=== PATIENT | male | born 1970 | race African-American/Black ===

== ENCOUNTER 2019-12-15 09:12 | Inpatient (IN) | payer BC, SELFPAY ==
--- NOTE | 2019-12-15 09:47 | RAD ---
EXAM: Single view of the chest HISTORY: Dyspnea and heart murmur COMPARISON: None FINDINGS: Single view of the chest shows a normal sized cardiomediastinal silhouette. There is fluffy opacity in the right hilar region which could represent pulmonary edema or an infiltrate. The bones are unremarkable. IMPRESSION: Right perihilar infiltrate versus edema
[2019-12-15 10:00] LABS: #Eosinphils 0.4 thou/uL (0.0-0.7); #Lymphocytes 1.7 thou/uL (1.20-3.40); #Monocytes 0.5 thou/uL (0.11-0.59); #Neutrophils 6.7 thou/uL (1.40-6.50); %Basophils 0.5 % (0.0-1.0); %Eosinophils 3.9 % (0.0-10.0); %Lymphocytes 18.4 % (21.0-51.0); %Monocytes 5.4 % (0.0-10.0); %Neutrophils 71.9 % (42.0-75.0); Mean Corpuscular HGB CONC 32.7 g/dL (32.0-36.0); Mean Corpuscular Hemoglobin 29.8 pg (27.0-31.0); Mean Corpuscular Volume 91.1 fL (78.0-98.0); Platelet Count 178 thou/uL (130-400); RBC Distribution Width 11.3 % (11.5-14.5); Red Blood Cell (RBC) Count 5.03 mill/uL (4.70-6.10); White Blood Cell (WBC) Count 9.4 thou/uL (4.8-10.8)
[2019-12-15 10:20] LABS: ALT (SGPT) 20 U/L (8-55); AST (SGOT) 33 U/L (5-34); Albumin 3.8 g/dL (3.5-5.0); Alkaline Phosphatase 66 U/L (40-110); Anion Gap 15 mmol/L (10-20); BUN (Urea Nitrogen) 16 mg/dL (8.9-20.6); Bilirubin, Total 1.2 mg/dL (0.2-1.2); CK (CPK) 361 U/L (30-200); Calc. Creatinine Clearance 0 mL/min (70-130); Carbon Dioxide 24 mmol/L (22-29); Chloride 104 mmol/L (98-107); Estimated GFR-MDRD 65; Glucose 143 mg/dL (70-105); Lipase 18 U/L (8-78); Potassium 4.1 mmol/L (3.5-5.1); Protein, Total 6.8 g/dL (6.0-8.3); Sodium 139 mmol/L (136-145)
[2019-12-15 10:45] LABS: CKMB 6.9 ng/mL (0-6.6)
[2019-12-15] MEDS ORDERED: Nitroglycerin 2% Ointment 1 INCH/1 GM Packet ONE (11:23)
[2019-12-15] MEDS ORDERED: Metoprolol Tartrate 5 MG/5 ML VIAL ONE (11:23)
[2019-12-15] MEDS ORDERED: Furosemide 40 MG/4 ML VIAL ONE (11:23)
[2019-12-15] MEDS ORDERED: Aspirin Chewable 81 MG TAB ONE (11:52)
--- NOTE | 2019-12-15 12:04 | CT ---
EXAM: CTA of the chest and abdomen HISTORY: Chest pain and back pain. Heart murmur and cough COMPARISON: None TECHNIQUE: Multiple contiguous axial images were obtained a CTA of the chest and abdomen with contras t per aortic dissection protocol. Sagittal and coronal 3-D MIP reformats were performed. FINDINGS: HEART: Normal in size with hypertrophy of the left ventricular wall. PULMONARY ARTERIES: Normal in caliber without filling defects to suggest pulmonary emboli. MEDIASTINUM: No hilar or mediastinal lymphadenopathy. LUNGS: Multifocal opacities are seen scattered throughout the lungs. This is worse in the right lung and is more prominent in the hilar region. PLEURAL SPACE: Small right pleural effusion. CHEST AND ABDOMINAL WALL SOFT TISSUES: Unremarkable LIVER: Calcified granuloma. GALLBLADDER: Unremarkable. KIDNEYS: Unremarkable. SPLEEN: Unremarkable. PANCREAS: Unremarkable. BOWEL: Unremarkable. RETROPERITONEUM: No lymphadenopathy BONES: Degenerative changes in the spine. ASCENDING THORACIC AORTA: Normal caliber without evidence of dissection or aneurysmal dilatation. DESCENDING THORACIC AORTA: Normal caliber without evidence of dissection or aneurysmal dilatation. ABDOMINAL AORTA: Normal caliber without evidence of dissection or aneurysmal dilatation. CELIAC TRUNK: Patent SMA: Patent IVETTE: Patent RENAL ARTERIES: Bilateral single renal arteries without significant atherosclerotic disease IMPRESSION: 1. No evidence of thoracic or abdominal aortic aneurysm or dissection 2. Multifocal opacities in the lungs. This may represent an infectious process. Pulmonary edema is al so a possibility although less likely given the normal size of the heart. 3. Small right pleural effusion
[2019-12-15 12:20] LABS: Bilirubin Negative (Negative); Blood, Urine Negative (Negative); Clarity Clear (Clear); Glucose, Urine (Dipstick) Normal (Negative); Leukocyte Negative Leu/uL (Negative); Nitrite Negative (Negative); Protein, Urine (Dipstick) Negative (Neg-Trace); Urobilinogen Normal mg/dL (Less than 2)
[2019-12-15] MEDS ORDERED: Acetaminophen 500 MG TAB ONE (12:21)
[2019-12-15] MEDS ORDERED: cefTRIAXone\\ROCEPHIN 2 GM VIAL ONE (13:09)
[2019-12-15] MEDS ORDERED: Carvedilol 6.25 MG TAB PO SCH (13:30)
[2019-12-15] MEDS ORDERED: Iopamidol-370 76% 500 ML 1 ML ONE (13:51)
[2019-12-15 14:21] LABS: Lactic Acid 1.7 mmol/L (0.5-2.2)
[2019-12-15 14:30] LABS: Troponin I 1.714 ng/mL (< 0.028)
[2019-12-15] MEDS ORDERED: Enoxaparin Sodium 80 MG/0.8 ML SYRINGE ONE (14:58)
--- NOTE | 2019-12-15 15:32 | CON ---
DATE OF CONSULTATION: 12/15/2019 REASON FOR CONSULTATION: Shortness of breath, murmur, and aortic insufficiency. 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 He recently was visiting [place] and recently came back. He is having some feeling of malaise, but no fever or chills. We were in the nursing station today. He reported to me that he had been having some palpitations and this did not feel well, had some awareness of his heart beating and he could hear his heartbeat. He did not have any chest pain. I listened to his heart and it had a loud murmur, has referred to the emergency room for further evaluation, especially in view of the loud murmur and feeling of malaise. PAST MEDICAL HISTORY: 1. The patient has a history of hypertension. He was taking an angiotensin receptor maude. 2. No diabetes. 3. No smoking. 4. No tobacco. 5. No caffeine. REVIEW OF SYSTEMS: CONSTITUTIONAL: Some malaise. VISION: No changes. HEARING: No changes. PULMONARY: Positive for some mild shortness of breath. CARDIAC: No chest pain or pressure. Some palpitations as mentioned. GASTROINTESTINAL: No nausea, vomiting, or diarrhea. SKIN: No rashes. NEUROLOGIC: No unilateral weakness or numbness. PSYCHIATRIC: No unusual depression or anxiety. PHYSICAL EXAMINATION: VITAL SIGNS: Examination is noted that the pulse was 104, even sitting in the nursing station. Blood pressure when he got down to the emergency room was 200 systolic down to 180/80. HEENT: Eyes, sclerae nonicteric. Mouth, mucous membranes moist. NECK: Supple. No lymphadenopathy. LUNGS: Some basilar rales. CARDIAC: There is a 4 to 5/6 systolic murmur, very high-pitched really heard throughout the precordium, but it is loudest at the left upper sternal border and right upper sternal border. It went to the base of the clavicles, it is really heard throughout the precordium. Heart rate is fast. I do hear a soft diastolic murmur. ABDOMEN: Soft and nontender. EXTREMITIES: No clubbing, cyanosis, or edema. SKIN: Warm and dry. PSYCHIATRIC: Mood and affect, normal. NEUROLOGIC: Grossly normal. DIAGNOSTIC DATA: EKG sinus rhythm with left ventricular hypertrophy with polarization changes. PERTINENT LABORATORY DATA: Creatinine is 1.4 and glucose 143. The patient's troponin 0.966. IMAGING STUDIES: Echocardiogram shows ejection fraction is 60% to 65%. There is moderate concentric left ventricular hypertrophy. There is severe aortic insufficiency. The aortic valve leaflets look thickened. No aortic stenosis. There is a possible membranous ventricular septal defect. Mild tricuspid insufficiency. CT scan for dissection protocol revealed normal aorta, no dissection, possible infiltrates. ASSESSMENT: 1. Severe aortic insufficiency. 2. Possible ventricular septal defect. 3. Possible endocarditis. 4. No evidence of any aortic dissection. 5. History of hypertension with moderate left ventricular hypertrophy. 6. Mild renal insufficiency. The patient does have a high muscle mass. Therefore, his creatinine may partly reflect the increased muscle mass. PLAN: 1. Infectious Disease has been consulted. 2. Diuretic has been given. It looks like he was in congestive heart failure. 3. Nitrates. 4. Carvedilol. 5. Continue angiotensin receptor blockers. We will check on him later today probably to get some further diuretics later in the day. Job ID: [id number]
--- NOTE | 2019-12-15 15:36 | CON ---
DATE OF CONSULTATION: 12/15/2019 REASON FOR CONSULTATION: Acute aortic insufficiency. 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 He listened to his heart and noticed that there was a loud murmur. He continued to have problems with breathing and was seen by Dr. Smith who admitted him. An echocardiogram showed wide open aortic insufficiency. CT dissection protocol did not reveal any evidence of aortic dissection. We have cultures pending. He has moderate headaches intermittently. No visual symptoms, sore throat, odynophagia, or dysphagia. He has not had any dental evaluation or treatment in the past many years. A little bit of cough, but no sputum production. No documented fever or chills. No night sweats. No abdominal pain or diarrhea. No genitourinary symptoms. No joint symptoms. No skin disorder. No neurological symptoms. MEDICAL HISTORY: Hypertension. ALLERGIES: NONE. MEDICATIONS: Losartan. Currently, he is on Rocephin, vancomycin, and p.r.n. medications. I think he is on diuretics and Coreg. FAMILY HISTORY: Sister has stage IV breast cancer. 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 No smoking. No drug use. Goes back and forth to visit family in [facility] from time to time. PHYSICAL EXAMINATION: GENERAL: He is awake, alert, and oriented. He does not appear in distress. VITAL SIGNS: His BP is 150/60, pulse is 102, O2 saturation 94%, and respiratory rate 22. SKIN: Normal. He has peripheral IV access and is voiding spontaneously. No lymphadenopathy. No skin lesions. No petechia or other types of hemorrhages. HEENT: Ocular movements conjugate. Conjunctivae normal. Ears and nose exam normal. Oral cavity normal. Teeth in fairly decent shape. NECK: Supple. No jugular vein distention or carotid bruits. No thyromegaly. LUNGS: Bibasilar inspiratory crackles. HEART: The patient has a quite harsh systolic murmur, short ejection type 2, heard pretty much throughout the precordium. The S2 is quite silent. I could not definitely hear a murmur in the diastole. ABDOMEN: Soft, not distended or tender. No ascites. No bladder distention. EXTREMITIES: No joint inflammatory activity. NEUROLOGIC: Nonfocal including cognitive function. LABORATORY DATA: White cell count 9.4, hemoglobin 15, platelets 178, 71% neutrophils, and 18% lymphocytes. Sodium 139 and creatinine 1.4. Liver profile normal. CK 361. Troponin 0.9. Albumin 3.8. TSH 1.15. Urinalysis was normal. Four sets of blood cultures have been submitted. The chest x-ray with bilateral pulmonary infiltrates as well as the CT dissection protocol scan. ASSESSMENT: Hypertension with new onset of acute aortic insufficiency with pulmonary edema. DISCUSSION: The differential diagnosis includes endocarditis versus myxomatous degeneration. Aortic dissection has been ruled out. The patient will have a FROY tomorrow and we will continue broad spectrum coverage empirically, prescribed. If the blood cultures are negative and there was evidence of endocarditis, we will submit the Karius test with a presumptive diagnosis of culture negative endocarditis. If the FROY does not show any vegetations, we will follow up the blood cultures and go from there. He probably will need a valve replacement. Job ID: [id number]
[2019-12-15] MEDS ORDERED: Ondansetron PF 4 MG/2 ML Vial IVP PRN (17:12)
[2019-12-15] MEDS ORDERED: Ibuprofen 200 MG TAB PO PRN (17:12)
[2019-12-15] MEDS ORDERED: Labetalol HCl 100 MG/20 ML VIAL SLOW IVP PRN (17:12)
[2019-12-15] MEDS ORDERED: hydrALAZINE 20 MG/ML VIAL SLOW IVP PRN (17:12)
[2019-12-15] MEDS ORDERED: Ondansetron ODT 4 MG TAB PO PRN (17:12)
[2019-12-15] MEDS ORDERED: Acetaminophen 500 MG TAB PO PRN (17:12)
[2019-12-15 17:14] LABS: Troponin I 1.841 ng/mL (< 0.028)
[2019-12-15 17:20] VITALS: BMI 26.5
[2019-12-15] MEDS ORDERED: Vancomycin HCl 1 GM in Premix Bag 1 BAG IVPB SCH ×2 (17:30→21:00)
[2019-12-15] MEDS ORDERED: Furosemide 40 MG/4 ML VIAL SLOW IVP SCH (17:45)
[2019-12-15] MEDS: Carvedilol 6.25 MG TAB PO SCH (18:00)
[2019-12-15] MEDS ORDERED: Losartan 25 MG TAB PO SCH (18:00)
[2019-12-15] MEDS ORDERED: niCARdipine 25 MG in Sodium Chloride 0.9% 250 ML 240 ML IVPB SCH (18:45)
--- NOTE | 2019-12-15 19:17 | PRG ---
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 OBJECTIVE: VITAL SIGNS: His blood pressure is very high 190/88, pulse 96. LUNGS: Clear. CARDIAC: There is a very loud systolic murmur as before. ABDOMEN: Soft and nontender. The troponin levels 1.7 followed by 1.8. BNP was 303. LABORATORY DATA: CT scan showed no evidence of any aortic dissection. Clinically, he has low suspicion for endocarditis. I think the patient does have a ventricular septal defect on the echocardiogram. He is scheduled for FROY tomorrow. I discussed the case with Dr. Mon. It could be that the patient's VSD is actually causing his aortic insufficiency. We would hopefully get a better look tomorrow of the transesophageal echo, may need to be transferred to [place] for surgical therapy if that indeed is the problem in terms of the VSD causing aortic insufficiency by the Venturi effect. Job ID: [id number]
[2019-12-15] MEDS ORDERED: Melatonin 3 MG TAB PO PRN (19:57)
--- NOTE | 2019-12-15 19:58 | HP ---
PRIMARY CARE PROVIDER: Blanka Jackson. CHIEF COMPLAINT: Shortness of breath and palpitations. HISTORY OF PRESENT ILLNESS: This is a 49-year-old male, who presents to [facility] Emergency Department and transferred from Dr. Smith's office after patient presented with sudden onset of shortness of breath and palpitations. The patient states he had just returned from a several week long vacation to [facility], his home country, with his family, returning in the last 4 to 5 days. The patient described no specific exposure history, but states he is unaware of any family members with similar symptoms or illness. The patient states he resumed his regular work duties, however, did notice some general malaise and increasing shortness of breath with minimal activity. The patient states he has no specific health problems other than taking the losartan for blood pressure. The patient states he took prophylactic antimalarial medications and occasional melatonin for insomnia. The patient states that he noticed a whooshing sound in his ears when using the restroom or sitting still with some chest tightness. The patient also felt like he had palpitations and his heart was racing at which point he sought the opinion from Dr. Smith. The patient was evaluated and referred to the emergency room after being examined for urgent echocardiogram. In the emergency room, the patient underwent 2D transthoracic echocardiogram showing severe aortic regurgitation with questionable vegetation on the aortic valve. The patient denies any known infectious disease history and states he received influenza vaccination in the early season of 2019. The patient denies any prior history of other vaccinations or pneumonia vaccination. The patient denied any unilateral lower extremity swelling, hemoptysis, hematochezia, melena, or change to his appetite. The patient denied any tracy documentation of fever, skin rashes, or family members with similar symptoms. The patient states he is normally very active and exercises on a regular basis. After patient's echocardiogram in the emergency room, the patient received IV Lasix 40 mg x1 dose in addition to Rocephin and vancomycin after concern for potential bacterial endocarditis. Four sets of blood cultures were obtained after discussing with Dr. Acuña in Infectious Disease Service. The patient also received intravenous normal saline, Tylenol, Coreg, aspirin, transdermal nitroglycerin, IV metoprolol, and Lovenox 1 mg/kg. Serial troponins showed trending upward with a current value of 1.714. The patient currently states his respiratory status has improved after receiving IV Lasix. PAST MEDICAL HISTORY: 1. Hypertension, treated with losartan. 2. Intermittent insomnia. PAST SURGICAL HISTORY: Reviewed and negative. CURRENT MEDICATIONS: 1. Losartan dose unknown. 2. Melatonin. 3. Antimalarial prophylaxis. ALLERGIES: NO KNOWN DRUG ALLERGIES. FAMILY HISTORY: Positive for coronary artery disease. Sister with breast cancer. SOCIAL HISTORY: , accompanied by his in the emergency room. 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 No current alcohol, tobacco, or illicit drug use. Functional of all activities of daily living. REVIEW OF SYSTEMS: CONSTITUTIONAL: Negative for weight loss or gain, ability to conduct usual activities. SKIN: Negative for rash, itching. EYES: Negative for double vision, pain. ENT/MOUTH: Negative for nose bleeding, neck stiffness, pain, tenderness. CARDIOVASCULAR: Negative for palpitations, dyspnea on exertion, orthopnea. RESPIRATORY: Negative for shortness of breath, wheezing, cough, hemoptysis, fever or night sweats. GASTROINTESTINAL: Negative for poor appetite, abdominal pain, heartburn, nausea, vomiting, constipation, or diarrhea. GENITOURINARY: Negative for urgency, frequency, dysuria, nocturia. MUSCULOSKELETAL: Negative for pain, swelling. NEUROLOGIC/PSYCHIATRIC: Negative for anxiety, depression. ALLERGY/IMMUNOLOGIC: Negative for skin rash, bleeding tendency. Otherwise negative except as stated per HPI. PHYSICAL EXAMINATION: VITAL SIGNS: On admission, blood pressure 200/100, pulse 106, respiratory rate 21, temperature 98.2 degrees Fahrenheit, O2 saturation 100% on room air. GENERAL APPEARANCE: This is a 49-year-old male, alert and oriented x3, pleasant, responsive, in no acute distress. HEENT: Pupils are equal, round, reactive to light and accommodation. Extraocular muscles are intact. No scleral icterus. No conjunctival injection. Nares patent. OP is clear. Teeth in good repair. NECK: Supple. No cervical adenopathy. No thyromegaly. No carotid bruits. No JVD appreciated. Cervical spine with full active and passive range of motion. No meningeal signs noted. CHEST: Basilar crackles bilaterally. CARDIOVASCULAR EXAM: S1, S2 with holosystolic murmur loudest in the aortic distribution with radiation into the carotids. ABDOMEN: Rounded, soft, nontender, and nondistended. Bowel sounds are positive in all 4 quadrants. There is no hepatosplenomegaly. No abdominal bruits. No rebound or guarding appreciated. EXTREMITIES: Warm and dry with fair turgor. No clubbing, cyanosis, or asymmetric edema appreciated. Pulses palpable distally at the dorsalis pedis, posterior tibial, and popliteal arteries bilaterally. Capillary refill less than 2 seconds. NEUROLOGIC: Cranial nerves 2 through 12 are grossly intact. No focal or lateralizing signs appreciated. PERTINENT LABORATORY AND X-RAY FINDINGS: Sodium 139, potassium 4.1, chloride 104, CO2 of 24, BUN 16, creatinine 1.41, estimated GFR 65, glucose 143. Lactic acid level ranged between 1.7 to 2.1, calcium 9.0. LFTs within normal limits. Total CK of 361. Troponin I ranged between 0.97 to 1.71. BNP 303. Albumin 3.8, lipase 18, TSH 1.16. CBC showed a white blood cell count of 9.4, hemoglobin 15, hematocrit 46, platelet count 178 with 72% neutrophils. D-dimer less than 0.27. Urinalysis negative. Portable chest x-ray dated 12/15/2019, showed right perihilar infiltrate versus edema. CT of the chest with aortic dissection protocol dated 12/15/2019, showed no evidence of thoracic or abdominal aortic aneurysm or dissection. Multifocal opacities in bilateral lung coleman. Small right pleural effusion noted. 2D transthoracic echocardiogram dated 12/15/2019, showed ejection fraction of 60% to 65%. Moderate left ventricular hypertrophy. Mild to moderate left atrial enlargement. Aortic valve thickening with possible vegetation. Severe aortic regurgitation. No aortic stenosis. Possible membranous ventricular septal defect. EKG dated 12/15/2019 by my interpretation shows sinus tachycardia with heart rates in the low 100s. Normal R-wave progression noted in the precordial leads. Left ventricular hypertrophy by voltage criteria. T-wave inversion noted in leads V3 through V6. ASSESSMENT AND PLAN: 1. Acute congestive heart failure exacerbation. The patient will be admitted to the Critical Care Unit. Exact etiology unclear. 2D transthoracic echocardiogram showing severe aortic regurgitation without prior history. Suspect pulmonary edema. We will continue Lasix 40 mg IV b.i.d. Cardiology consult initiated in the emergency room. Continue serial echocardiogram evaluations. Suspect possible relationship to #2. Check TSH and magnesium level in the a.m. 2. Bacterial endocarditis. Suspected given aortic valve thickening on echocardiogram evaluation. Plan for transesophageal echocardiogram to further define aortic valve anatomy. Continue vancomycin 1 g IV q.12 hours with additional Rocephin 2 g IV q.24 hours. Infectious Disease consult initiated in the emergency department. 3. Acute hypoxic respiratory failure, secondary to #1 and #2. We will continue supportive management. IV Lasix as stated previously. General pulmonary supportive management. Oxygen to maintain O2 saturations greater than or equal to 90%. 4. Non-ST elevation myocardial infarction type 2. Suspect secondary to #1 and #2. Continue Lovenox 1 mg/kg subcutaneously q.12 hours. Aspirin 81 mg daily. Continue Coreg 6.25 mg p.o. b.i.d. 5. Hypertension. Continue IV hydralazine and labetalol p.r.n. systolic greater than or equal to 170. Confirm home losartan dose. 6. Prophylaxis. SCDs while in bed. Pepcid 20 mg p.o. b.i.d. 7. Code status is full. Surrogate medical decision maker is the patient's spouse. Job ID: [id number]
[2019-12-15] MEDS: Enoxaparin Sodium 40 MG/0.4 ML SYRINGE SC SCH (20:17)
[2019-12-15] MEDS: Famotidine 20 MG TAB PO SCH (20:17)
[2019-12-15] MEDS ORDERED: Enoxaparin Sodium 80 MG/0.8 ML SYRINGE SC SCH (21:00)
[2019-12-15] MEDS: ALPRAZolam 0.5 MG TAB PO PRN (22:35)
[2019-12-16] MEDS: Vancomycin HCl 1.25 GM in Sodium Chloride 0.9% 250 ML 250 ML IVPB SCH ×2 (01:16→14:30)
[2019-12-16 04:17] LABS: Anion Gap 11 mmol/L (10-20); BUN (Urea Nitrogen) 15 mg/dL (8.9-20.6); Calc. Creatinine Clearance 86 mL/min (70-130); Carbon Dioxide 29 mmol/L (22-29); Chloride 101 mmol/L (98-107); Estimated GFR-MDRD 72; Glucose 106 mg/dL (70-105); Magnesium 1.9 mg/dL (1.6-2.6); Potassium 3.7 mmol/L (3.5-5.1); Sodium 137 mmol/L (136-145)
[2019-12-16 04:23] LABS: Critical Call Chem Troponin I RESULT DECREASING; Troponin I 0.861 ng/mL (< 0.028)
[2019-12-16 04:28] LABS: Eosinophils 9 % (0-10); Lymphocytes 19 % (21-51); MDiff Complete? YES; Mean Corpuscular HGB CONC 32.6 g/dL (32.0-36.0); Mean Corpuscular Hemoglobin 29.5 pg (27.0-31.0); Mean Corpuscular Volume 90.3 fL (78.0-98.0); Mean Platelet Volume 8.9 fL (7.4-10.4); Monocytes 7 % (0-10); Neutrophil 65 % (42-75); Platelet Count 172 thou/uL (130-400); RBC Distribution Width 11.3 % (11.5-14.5); Red Blood Cell (RBC) Count 5.08 mill/uL (4.70-6.10); White Blood Cell (WBC) Count 10.4 thou/uL (4.8-10.8)
[2019-12-16] MEDS ORDERED: Furosemide 40 MG/4 ML VIAL SLOW IVP SCH (06:00)
[2019-12-16] MEDS: Enoxaparin Sodium 40 MG/0.4 ML SYRINGE SC SCH (07:08)
[2019-12-16] MEDS: Carvedilol 6.25 MG TAB PO SCH ×2 (07:08→17:09)
[2019-12-16] MEDS: Losartan 25 MG TAB PO SCH ×2 (07:08→19:54)
[2019-12-16] MEDS: Famotidine 20 MG TAB PO SCH ×2 (07:08→19:55)
--- NOTE | 2019-12-16 08:21 | RAD ---
EXAM: CHEST ONE VIEW HISTORY: Heart failure COMPARISON: 12/15/2019 FINDINGS: The cardiac silhouette is magnified by projection but does appear mildly enlarged. Pulmonary vasculat ure is borderline increased. There are bilateral perihilar interstitial and alveolar opacities slightly greater on the right, but findings on the right may be slightly improved. Findings may be re lated to improvement in asymmetric pulmonary edema. Infectious process cannot be entirely excluded. No pleural effusion is identified. The osseous structures are intact. IMPRESSION: 1. Bilateral perihilar interstitial and alveolar opacities greater on the right which may be related to asymmetric pulmonary edema versus infectious process. Findings appear stable to slightly improved from prior exam. Continued follow-up to resolution is recommended.
--- NOTE | 2019-12-16 08:28 | CON ---
DATE OF CONSULTATION: HISTORY OF PRESENT ILLNESS: Alyx is a 49-year-old gentleman from [place], who just returned from home a week ago with sudden onset of cough and shortness of breath without any associated fever or chills. He was seen by Dr. Smith, where he was found to have a loud murmur. Echocardiogram shows aortic insufficiency. He said this symptoms has just started in the last 3 to 4 days. Prior to that, he has been asymptomatic, could walk a block without getting PAST MEDICAL HISTORY: Hypertension. He takes medication. Otherwise, no alcohol, tobacco, or substance abuse. PAST SURGICAL HISTORY: None. ALLERGIES: NONE. MEDICATIONS: Losartan. He apparently in the ER was given a diuretic, Rocephin, and vancomycin. REVIEW OF SYSTEMS: Otherwise, 10 point negative. PHYSICAL EXAMINATION: GENERAL: In the ER, he appears to be in no acute distress. VITAL SIGNS: Respirations are 16, pulse 80, sats 100%. CHEST: No wheezing or crackles. CARDIAC: Loud murmur, ptosis 2/6 all over the precordium ejection. LABORATORY DATA: His creatinine is 1.4. His troponin was elevated to 1.71. BNP is 303. Chest x-ray shows right-sided infiltrate. White count 9000, platelet count is normal. IMPRESSION: 1. Congestive heart failure secondary to aortic regurgitation by echocardiogram. 2. History of hypertension. 3. Mild azotemia. Since the patient is coming to the MICU, we will MICU. Workup as per Cardiology. He does have bilateral infiltrates, probably would put him on a single antibiotic. Levaquin. Small pleural effusion. We will follow while in the MICU. This is a consultation note, 70 minutes, 50% direct patient care. Job ID: [id number]
--- NOTE | 2019-12-16 08:41 | OP ---
DATE OF PROCEDURE: 12/16/2019 PROCEDURE PERFORMED: Transesophageal echocardiogram. INDICATION: A 49-year-old gentleman with aortic regurgitation. DESCRIPTION OF PROCEDURE: The patient was taken to the PACU. The patient was sedated by Anesthesiology. A transesophageal probe was placed into the distal esophagus and stomach. Echocardiographic images were obtained. The transesophageal probe was removed. FINDINGS: 1. Normal left ventricular systolic function. 2. Normal cardiac chambers. 3. Aortic valve leaflet prolapses into the left ventricular outflow tract. 4. Severe aortic regurgitation. 5. Perimembranous VSD. 6. Atherosclerotic debris in the descending aorta. IMPRESSION: Severe aortic regurgitation with prolapse of an aortic leaflet and a perimembranous ventricular septal defect. Job ID: [id number] [facility]
[2019-12-16] MEDS ORDERED: Furosemide 20 MG/2 ML VIAL SLOW IVP SCH (08:45)
[2019-12-16] MEDS ORDERED: FLU VACC QS2019-20(6MOS UP)/PF 60 MCG/0.5 ML SYRINGE IM ONE (09:00)
[2019-12-16] MEDS ORDERED: Potassium Chloride 20 MEQ TAB PO SCH (09:00)
[2019-12-16] MEDS ORDERED: Aspirin Chewable 81 MG TAB PO SCH (09:00)
[2019-12-16] MEDS ORDERED: Enoxaparin Sodium 40 MG/0.4 ML SYRINGE SC SCH (09:00)
--- NOTE | 2019-12-16 09:02 | PRG ---
DATE OF SERVICE: SUBJECTIVE: Abelardo Wisdom has elevated this morning. Please review Cardiology's note. OBJECTIVE: VITAL SIGNS: His pulse 87, blood pressure 114/81, saturations 90%, respirations 21. His I's and O's have been negative. CHEST: Bilateral rhonchi, right greater than left. CARDIAC: Normal S1 and S2. No gallops. Loud 2/6 ejection systolic murmur. LABORATORY DATA: Creatinine 1.29 and glucose 106 . Chest x-ray shows right-sided infiltrate. IMPRESSION: Status post FROY, abnormal aortic valve leaflet apparently. I think he may have a VSD related problem causing aortic insufficiency. PLAN: Plan is to transfer to [place] for appropriate intervention. Job ID: [id number]
--- NOTE | 2019-12-16 09:20 | PRG ---
DATE OF SERVICE: 12/16/2019 SUBJECTIVE: Mr. Wisdom underwent transesophageal echo this morning. The patient is breathing better. OBJECTIVE: VITAL SIGNS: His blood pressure has improved 130/70, pulse 80. LUNGS: Clear. CARDIAC: There is still a very loud holosystolic murmur throughout the precordium. ABDOMEN: Soft and nontender. EXTREMITIES: There is no edema. LABORATORY DATA: Transesophageal echo revealed ventricular septal defect just below the aortic valve. The aortic insufficiency looks less severe now, but the blood pressure is much lower. Other laboratories: The creatinine is stable at 1.29. Troponin 0.86. BNP somewhat improved to 218. The chest x-ray still shows some pulmonary congestion. ASSESSMENT: 1. Ventricular septal defect. 2. Aortic insufficiency, probably related to ventricular septal defect. 3. Hypertension. 4. Clearly, the aortic insufficiency is much worse when his pressure is high. 5. Somewhat labile hypertension. PLAN: 1. Talk to Dr. Ley in [place] about transfer. I think the patient needs surgery. The patient will be arranged to go to [place]. 2. We will reduce the furosemide dose. 3. Replete potassium. Job ID: [id number]
--- NOTE | 2019-12-16 09:26 | PRG ---
DATE OF SERVICE: 12/16/2019 SUBJECTIVE: Abelardo Wisdom remains in the ICU. He was found to have a VSD and being transferred to [place]. OBJECTIVE: VITAL SIGNS: Temperature 99, blood pressure 192/77, pulse 58, and respirations 18. CHEST: Rhonchi or crackles right greater than left. CARDIAC: Normal S1 and S2. No gallops. ABDOMEN: No masses. ASSESSMENT AND PLAN: Ventricular septal defects by transesophageal echocardiogram, transferred to [place]. In the meantime, continue antibiotics. Pulmonary will follow if he remains in the hospital. Job ID: [id number]
--- NOTE | 2019-12-16 10:24 | PDOC.HOSPP ---
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 He does not have any complaints. He says he is no longer short of breath. He denies any chest pain. - Objective Vital Signs & Weight: Vital Signs (12 hours) Temp Pulse Ox 12/16/19 08:00 99.4 F 98 12/16/19 04:00 99.0 F 12/16/19 00:00 98.2 F Weight Weight 190 lb 7.67 oz Most Recent Monitor Data Heart Rate from ECG 89 NIBP 192/77 NIBP BP-Mean 115 Respiration from ECG 23 SpO2 99 I&O: 12/15/19 12/16/19 12/17/19 06:59 06:59 06:59 Intake Total 1134.5 Output Total 2330 1075 Balance -1195.5 -1075 Result Diagrams: 12/16/19 03:40 12/16/19 03:40 Hospitalist ROS - Medication Medications: Active Medications Generic Name Dose Route Start Last Admin Trade Name Freq PRN Reason Stop Dose Admin Acetaminophen 1,000 mg 12/15/19 17:12 12/15/19 18:02 Tylenol PO 1,000 mg Q6H PRN Administration Mild Pain (1-3) Alprazolam 0.5 mg 12/15/19 22:31 12/15/19 22:35 Xanax PO 0.5 mg HSPRN PRN Administration .INSOMNIA Aspirin 81 mg 12/16/19 09:00 12/16/19 07:08 Aspirin Chewable PO 81 mg DAILY LINUS Administration Carvedilol 6.25 mg 12/15/19 18:00 12/16/19 07:08 Coreg PO 6.25 mg BID-WM LINUS Administration Famotidine 20 mg 12/15/19 21:00 12/16/19 07:08 Pepcid PO 20 mg BID LINUS Administration Levofloxacin 750 mg/ Device 150 mls @ 100 mls/hr 12/15/19 17:00 12/15/19 17: 50 IVPB 150 mls Q24HR LINUS Administration Vancomycin HCl 1.25 gm/ Sodium 250 mls @ 166.667 mls/hr 12/16/19 02:00 01:16 Chloride IVPB 250 mls 0200,1400 LINUS Administration Nicardipine HCl 25 mg/ Sodium 250 mls @ 0 mls/hr 12/15/19 18:45 12/15/19 19: 13 Chloride IVPB 250 mls INF LINUS Administration Protocol Titrate Losartan Potassium 50 mg 12/16/19 09:00 12/16/19 07:08 Cozaar PO 50 mg BID LINUS Administration Melatonin 6 mg 12/15/19 19:57 12/15/19 20:17 Melatonin PO 6 mg HSPRN PRN Administration Insomnia - Exam Eye: PERRL Heart: RRR, no gallops, no rubs, normal peripheral pulses, murmur present, III/ IV (high pitched short systolic murmur, very slight diastolic murmur) Respiratory: CTAB, no wheezes, no rales, no ronchi, normal chest expansion Gastrointestinal: soft, non-tender, non-distended, normal bowel sounds Extremities: no cyanosis, no edema Hosp A/P (1) Aortic insufficiency Code(s): I35.1 - NONRHEUMATIC AORTIC (VALVE) INSUFFICIENCY Status: Acute (2) Ventricular septal defect (VSD) Code(s): Q21.0 - VENTRICULAR SEPTAL DEFECT Status: Chronic (3) Hypertension Code(s): I10 - ESSENTIAL (PRIMARY) HYPERTENSION Status: Chronic - Plan * Aortic Insufficiency- possibly from VSD * Continue Afterload reduction with increased dose of Losartan and Lasix- he has been weaned off the Cardene drip * HTN- blood pressure has improved * Antibiotic Prophylaxis with Levaquin and Vancomycin * Plan is for transfer to [place] for VSD repair, and possible Aortic valve replacement
[2019-12-16] MEDS ORDERED: cefTRIAXone\\ROCEPHIN 2 GM in Sodium Chloride 0.9% 100 ML IVPB SCH (13:00)
--- NOTE | 2019-12-16 14:41 | PRG ---
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 He is feeling okay, had a FROY and the results discussed below. He denies any chest pain, shortness of breath has improved. OBJECTIVE: VITAL SIGNS: His T-max 99.4, BP 160/80, pulse 107, respirations 25, 100% FiO2. GENERAL: Awake, alert, and oriented. LUNGS: Clear. HEAR: S1 and S2 with loud systolic murmur. ABDOMEN: Soft, nondistended. NEUROLOGIC: Nonfocal. LABORATORY DATA: White cell count 10.4, hemoglobin 15, platelets 172 with 65% neutrophils, 19% lymphocytes, and troponin 0.861. BNP 218, creatinine 1.29 which is improved. FROY showed ventricular septal defect which seems to be pulling one of the aortic valve leaflets into the left ventricle and causing the aortic insufficiency. There were no vegetations associated with that area. Blood cultures x4, thus far negative. ASSESSMENT/DISCUSSION: Acute aortic insufficiency probably due to ventricular septal defect and the coaptations of one of the leaflets of the aortic valve into the left ventricle quite unusual phenomenon. No evidence of infection thus far and will have to continue monitoring blood cultures to the end, but I think we can discontinue antimicrobials at this moment. I think he is going to be transferred to [place]. Job ID: [id number]
[2019-12-16] MEDS ORDERED: Lidocaine 1% PF 5 ML VIAL ONE (16:07)
[2019-12-16] MEDS ORDERED: PROPOFOL 200 MG/20 ML VIAL ONE (16:07)
[2019-12-16] MEDS: ALPRAZolam 0.5 MG TAB PO PRN (19:55)
[2019-12-16 21:33] VITALS: TEMP 98.4
[2019-12-17] MEDS ORDERED: Potassium Chloride 20 MEQ TAB PO SCH (08:00)
[2019-12-17] MEDS ORDERED: Enoxaparin Sodium 40 MG/0.4 ML SYRINGE SC SCH (09:00)
--- NOTE | 2019-12-17 15:33 | EKG ---
Test Reason : Blood Pressure : / mmHG Vent. Rate : 106 BPM Atrial Rate : 106 BPM P-R Int : 150 ms QRS Dur : 080 ms QT Int : 330 ms P-R-T Axes : 043 -19 140 degrees QTc Int : 438 ms Sinus tachycardia Possible Left atrial enlargement Left ventricular hypertrophy with repolarization abnormality Cannot rule out Septal infarct , age undetermined Abnormal ECG Confirmed by CANDE NASH, ARPITA ([id number]), commercial production editor TIKI ELLIS ([id number]) on 12/17/2019 3:33:04 PM Referred By: Confirmed By:ARPITA CASTELLON MD
--- NOTE | 2019-12-19 02:18 | PQF ---
Abelardo Wisdom ISACC DE LOS SANTOS MD [id number] CLINICAL DOCUMENTATION CLARIFICATION FORM: POST DISCHARGE Addendum to original discharge summary date: ____ Late entry note date: __ DATE:12/19/19 ATTN: Isacc Noel Please exercise your independent, professional judgment in responding to the clarification form. Clinical indicators are provided on the bottom of this form for your review Please check appropriate box(s) to clarify if the following diagnosis has been ruled in or ruled out: Acute hypoxic Respiratory failure [ X] Ruled in diagnosis [ ] Continue to treat [ ] Resolved [ ] Ruled out diagnosis [ ] Cannot rule out diagnosis [ ] Other diagnosis [ ] Unable to determine In addition, please specify: Present on Admission (POA): [ X] Yes [ ] No [ ] Unable to determine For continuity of documentation, please document condition throughout progress notes and discharge summary. Thank You. 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 H&P p1 12/15 Dr Vasques The patient states he resumed his regular work duties, however, did notice some general malaise and increasing shortness of breath with minimal activity. H&P p1 12/15 Dr Vasques The patient states he has no specific supriya problems other than taking the losartan for blood pressure H&P p1 12/15 Dr Vasques In the emergency room, the patient underwent 2D transthoracic echocardiogram showing severe aortic regurgitation with questionable vegetation on the aortic valve. RISK FACTORS H&P p4 12/15 Acute congestive heart failure exacerbation H&P p4 12/15 Acute hypoxic Respiratory failure H&P p4 12/15 Severe Regurgitation of Aorta H&P p4 12/15 Non-ST elevation myocardial Infarction type 2 TREATMENTS JAN 28 IV Lasix JAN 28 Coreg JAN 28 transdermal Nitroglycerin JAN 28 IV Metoprolol (This form is maintained as a part of the permanent medical record) 2014 [employer]. All Rights Reserved [email or web address] [not provided] MTDD
--- NOTE | 2019-12-19 02:19 | PQF ---
Abelardo Wisdom ISACC DE LOS SANTOS MD [id number] CLINICAL DOCUMENTATION CLARIFICATION FORM: POST DISCHARGE Addendum to original discharge summary date: ____ Late entry note date: __ DATE: 12/19/2019 ATTN: Isacc Noel Please exercise your independent, professional judgment in responding to the clarification form. Clinical indicators are provided on the bottom of this form for your review Please check appropriate box(s) to clarify if the following diagnosis has been ruled in or ruled out: Non-ST elevation myocardial Infacrtion type 2 [ X ] Ruled in diagnosis [ X ] Continue to treat [ ] Resolved [ ] Ruled out diagnosis [ ] Cannot rule out diagnosis [ ] Other diagnosis [ ] Unable to determine In addition, please specify: Present on Admission (POA): [ X ] Yes [ ] No [ ] Unable to determine For continuity of documentation, please document condition throughout progress notes and discharge summary. Thank You. CLINICAL INDICATORS - SIGNS / SYMPTOMS / LABS [employer] Chemistry 12/15 CK-MB 6.9, Troponin I 0.966 H&P p1 12/15 Dr Vasques presented with sudden onset of shortness of breath and palpitations. H&P p1 12/15 Dr Vasques The patient states he resumed his regular work duties, however, did notice some general malaise and increasing shortness of breath with minimal activity. H&P p1 12/15 Dr Vasques The patient states he has no specific supriya problems other than taking the losartan for blood pressure H&P p1 12/15 Dr Vasques In the emergency room, the patient underwent 2D transthoracic echocardiogram showing severe aortic regurgitation with questionable vegetation on the aortic valve. RISK FACTORS H&P p4 12/15 Acute congestive heart failure exacerbation H&P p4 12/15 Acute hypoxic Respiratory failure H&P p4 12/15 Severe Regurgitation of Aorta H&P p4 12/15 Non-ST elevation myocardial Infarction type 2 TREATMENTS JAN 28 IV Lasix JAN 28 Coreg JAN 28 transdermal Nitroglycerin JAN 28 IV Metoprolol JAN 28 IV normal saline (This form is maintained as a part of the permanent medical record) 2014 [employer]. All Rights Reserved [email or web address] [not provided] MTDD
--- NOTE | 2019-12-19 02:22 | PQF ---
Abelardo Wisdom ISACC DE LOS SANTOS MD [id number] CLINICAL DOCUMENTATION CLARIFICATION FORM: POST DISCHARGE Addendum to original discharge summary date: ____ Late entry note date: __ DATE: 12/19/2019 ATTN: Isacc Noel Please exercise your independent, professional judgment in responding to the clarification form. Clinical indicators are provided on the bottom of this form for your review Please check appropriate box(s): HEART FAILURE: A. TYPE: [ ] Systolic / HFrEF [X ] Diastolic / HFpEF [ ] Combined Systolic / Diastolic B. ACUITY [ ]X Acute [ ] Acute on Chronic [ ] Chronic [ ] Other diagnosis [ ] Unable to determine In addition, please specify: Present on Admission (POA): [ X] Yes [ ] No [ ] Unable to determine For continuity of documentation, please document condition throughout progress notes and discharge summary. Thank You. CLINICAL INDICATORS - SIGNS / SYMPTOMS / LABS [employer] Chemistry 12/15 CK-MB 6.9, Troponin I 0.966 H&P p1 12/15 Dr Vasques presented with sudden onset of shortness of breath and palpitations. H&P p1 12/15 Dr Vasques The patient states he resumed his regular work duties, however, did notice some general malaise and increasing shortness of breath with minimal activity. H&P p1 12/15 Dr Vasques The patient states he has no specific supriya problems other than taking the losartan for blood pressure H&P p1 12/15 Dr Vasques In the emergency room, the patient underwent 2D transthoracic echocardiogram showing severe aortic regurgitation with questionable vegetation on the aortic valve. RISK FACTORS H&P p4 12/15 Acute congestive heart failure exacerbation H&P p4 12/15 Acute hypoxic Respiratory failure H&P p4 12/15 Severe Regurgitation of Aorta H&P p4 12/15 Non-ST elevation myocardial Infarction type 2 TREATMENTS JAN 28 IV Lasix MAR 1/16 Coreg JAN 28 transdermal Nitroglycerin JAN 28 IV Metoprolol JAN 28 IV normal saline (This form is maintained as a part of the permanent medical record) 2014 [employer]. All Rights Reserved [email or web address] [not provided] MTDD
--- NOTE | 2019-12-22 15:32 | DIS ---
DATE OF ADMISSION: 12/15/2019 DATE OF DISCHARGE: 12/16/2019 DISCHARGE DISPOSITION: To [facility] in [place]. DISCHARGE DIAGNOSES: 1. Acute aortic insufficiency. 2. Ventricular septal defect. 3. Acute diastolic heart failure secondary to acute aortic insufficiency and ventricular septal defect. 4. Hypertension. DISCHARGE MEDICATIONS: Include; 1. Potassium chloride 20 mEq p.o. daily. 2. Melatonin 6 mg at bedtime as needed. 3. Losartan 50 mg p.o. twice daily. 4. Labetalol 20 mg IV q.4 as needed. 5. Hydralazine 10 mg IV q.4 hours as needed. 6. Ibuprofen 400 mg q.4 hours as needed. 7. Lasix 20 mg IV daily. 8. Pepcid 20 mg p.o. twice a day. 9. Lovenox 40 mg subcu daily. 10. Carvedilol 6.25 mg twice daily. 11. Aspirin 81 mg daily. 12. Alprazolam 0.5 mg as needed. 13. Tylenol 500 mg q.6 as needed. PROCEDURES DONE DURING THIS ADMISSION: The patient had a CT scan dissection protocol in which there was no evidence of thoracic or abdominal aortic aneurysm. There was multifocal opacities in the lung, possibly representing pulmonary edema. The patient had an echocardiogram in which the ejection fraction was estimated at 60% to 65%. There was concentric left ventricular hypertrophy and possible membranous ventricular septal defect and severe aortic regurgitation was noted. There was no evidence of any vegetation. The patient had a transesophageal echo with no evidence of vegetation. CODE STATUS: Full code. ALLERGIES: NO KNOWN DRUG ALLERGIES. 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 He also noted a new murmur. He saw Dr. Smith in his office and the new murmur was confirmed as well as clinical evidence of heart failure. He was sent to the ER, where a CT angiogram of the chest was done. This was negative for evidence of aortic dissection. He was admitted to the ICU, started on IV medication to reduce his afterload as well as IV diuretics. The dose of losartan was increased to 50 mg twice daily and he was placed on IV Lasix as well as low-dose beta-maude. Transesophageal echo demonstrated acute aortic insufficiency as well as a ventricular septal defect. It is felt that the aortic insufficiency was a result of the VSD. He was then transferred to [facility] in [place] and [facility] in order to have repair of the VSD and likely the aortic valve as well. Job ID: [id number]
== END 2019-12-16 20:13 | disposition short-term general hospital (02) | DRG 280 ==
LOC: ERS 09:12 → CCU 13:56
PROVIDERS: ADMIT Internal Medicine Cardiovascular Disease; ATTEND Internal Medicine Cardiovascular Disease
PROC: B24BZZ4 Ultrasonography of Heart with Aorta, Transesophageal (ICD-10-PCS; principal; 2019-12-16)
DX: I35.1 Nonrheumatic aortic (valve) insufficiency (principal); I50.31 Acute diastolic (congestive) heart failure; I21.A1 Myocardial infarction type 2; J96.01 Acute respiratory failure with hypoxia; Q21.0 Ventricular septal defect; G47.00 Insomnia, unspecified; I11.0 Hypertensive heart disease with heart failure; Z79.899 Other long term (current) drug therapy
CPT/HCPCS: 36415; 71045; 71275; 72191; 74175; 80048; 80053; 81003; 82550; 82553; 83605; 83690; 83735; 83880; 84443; 84484; 85007; 85025; 85027; 85379; 86060; 87040; 93005; 93306; 93312; 96361; 96365; 96367; 96372; 96375; 99292; J0696; J1650; J1940; J1956; J2001; J2704; J3370; J3490; J7050; Q9967

== ENCOUNTER 2021-08-09 07:58 | Inpatient (IN) | payer BC ==
[2021-08-09 09:01] LABS: Bilirubin Negative (Negative); Blood, Urine Negative (Negative); Clarity Clear (Clear); Glucose, Urine (Dipstick) Normal (Negative); Ketone, Urine Negative (Negative); Leukocyte Negative Leu/uL (Negative); Nitrite Negative (Negative); Protein, Urine (Dipstick) Negative (Neg-Trace); Specific Gravity, Urine 1.015 (1.002-1.036); Urobilinogen Normal mg/dL (Less than 2)
[2021-08-09 09:09] LABS: #Eosinphils 0.2 thou/uL (0.0-0.7); #Lymphocytes 2.2 thou/uL (1.20-3.40); #Monocytes 0.3 thou/uL (0.11-0.59); #Neutrophils 2.4 thou/uL (1.40-6.50); %Basophils 0.8 % (0.0-1.0); %Lymphocytes 42.1 % (21.0-51.0); %Monocytes 6.3 % (0.0-10.0); %Neutrophils 47.8 % (42.0-75.0); Hemoglobin 14.7 g/dL (14.0-18.0); Mean Corpuscular HGB CONC 30.5 g/dL (32.0-36.0); Mean Corpuscular Hemoglobin 25.4 pg (27.0-31.0); Mean Corpuscular Volume 83.3 fL (78.0-98.0); Mean Platelet Volume 9.2 fL (7.4-10.4); Platelet Count 221 thou/uL (130-400); RBC Distribution Width 14.8 % (11.5-14.5); Red Blood Cell (RBC) Count 5.79 mill/uL (4.70-6.10); White Blood Cell (WBC) Count 5.1 thou/uL (4.8-10.8)
[2021-08-09 09:18] LABS: INR-International Normal Ratio 2.5; Prothrombin Time 27.3 sec (12.0-14.7)
[2021-08-09 09:28] LABS: ALT (SGPT) 25 U/L (8-55); AST (SGOT) 31 U/L (5-34); Albumin 4.4 g/dL (3.5-5.0); Alkaline Phosphatase 111 U/L (40-110); Anion Gap 11 mmol/L (10-20); BUN (Urea Nitrogen) 14 mg/dL (8.9-20.6); Bilirubin, Total 0.5 mg/dL (0.2-1.2); Calc. Creatinine Clearance 0 mL/min (70-130); Calcium 9.7 mg/dL (7.8-10.44); Carbon Dioxide 28 mmol/L (22-29); Chloride 100 mmol/L (98-107); Globulin 3.8 g/dL (2.4-3.5); Glucose 115 mg/dL (70-105); Potassium 4.1 mmol/L (3.5-5.1); Protein, Total 8.2 g/dL (6.0-8.3); Sodium 135 mmol/L (136-145)
[2021-08-09] MEDS ORDERED: Aspirin 300 MG Suppository ONE (10:25)
[2021-08-09] MEDS ORDERED: Iopamidol-370 76% 500 ML 1 ML ONE (11:07)
[2021-08-09] MEDS ORDERED: Rocuronium Bromide 10 MG/ML (10ML VIAL) ONE (11:52)
[2021-08-09] MEDS ORDERED: Fentanyl CADD 100 ML IV SCH ×2 (12:15→18:30)
[2021-08-09 12:51] LABS: Actual Bicarbonate (HCO3a) 23.5 mEq/L (22-28); Analyzer IN Cardio ER; Base Excess (BEa) 1.2 mEq/L (-2.0 to +3.0); CO2 Tension 31.2 mmHg (35.0-45.0); Calcium, Ionized (arterial) 1.15 mmol/L (1.12-1.30); Carboxyhemoglobin (COHb) 0.4 gm% (0.0-3.0); Hemoglobin (Hb) 15.8 g/dL (14.0-18.0); O2 Tension (PaO2), arterial 114.2 mmHg (80.0-100.0); Potassium - ABG Lab 3.65 mmol/L (3.70-5.30); pH, Arterial 7.49 (7.35-7.45)
[2021-08-09 12:56] LABS: Puncture Site LBA
[2021-08-09] MEDS ORDERED: Nitroglycerin 2% Ointment 1 INCH/1 GM Packet ONE (13:10)
[2021-08-09 13:30] LABS: SARS-CoV-2 NAA Rapid Test Not Detected (NotDetected)
[2021-08-09] MEDS ORDERED: PROPOFOL 20 ML ONE (13:36)
[2021-08-09] MEDS ORDERED: Propofol 1,000 MG/100 ML VIAL IV ONE ×2 (13:36→13:37)
[2021-08-09] MEDS ORDERED: Norepinephrine 8 MG/0.9% NS 250 ML IVPB PRN (17:27)
[2021-08-09] MEDS ORDERED: Electrolyte Replacement Protocol 1 EACH IVPB ONE (17:27)
[2021-08-09] MEDS ORDERED: Propofol 1,000 MG/100 ML VIAL IV SCH (17:30)
[2021-08-09] MEDS ORDERED: Ventilator Sedation Protocol 1 EACH FS SCH (17:30)
[2021-08-09] MEDS ORDERED: Lorazepam 2 MG/ML VIAL SLOW IVP PRN ×2 (17:31→18:30)
[2021-08-09] MEDS ORDERED: Warfarin Sodium 5 MG TAB PO SCH (17:35)
[2021-08-09] MEDS ORDERED: Ondansetron ODT 4 MG TAB PO PRN (17:35)
[2021-08-09] MEDS ORDERED: Ondansetron PF 4 MG/2 ML Vial IVP PRN (17:35)
[2021-08-09] MEDS ORDERED: hydrALAZINE 20 MG/ML VIAL SLOW IVP PRN (17:35)
[2021-08-09] MEDS ORDERED: Acetaminophen 650 MG Suppository PR PRN (17:35)
[2021-08-09] MEDS ORDERED: Acetaminophen 500 MG TAB PO PRN (17:35)
[2021-08-09] MEDS ORDERED: Electrolyte Replacement Protocol 1 EACH IVPB SCH (18:15)
[2021-08-09] MEDS ORDERED: Morphine 2 MG/ML VIAL SLOW IVP PRN (18:30)
[2021-08-09] MEDS ORDERED: Fentanyl BOLUS 250 ML IVPB PRN (18:30)
[2021-08-09] MEDS ORDERED: DISCONTINUE PREVIOUS NARCOTIC PAIN MEDICATIONS AND BENZODIAZEPINES FS SCH (18:30)
[2021-08-09] MEDS ORDERED: Propofol 1,000 MG/100 ML VIAL IV PRN (18:30)
[2021-08-09] MEDS ORDERED: Propofol BOLUS 1,000 MG/100 ML VIAL IV PRN (18:30)
[2021-08-09] MEDS ORDERED: Electrolyte Replacement Protocol FS PRN (18:45)
[2021-08-09] MEDS: Atorvastatin Calcium 40 MG TAB PO SCH (20:22)
[2021-08-09] MEDS ORDERED: Famotidine/PF 20 mg/2ml Vial SLOW IVP SCH (21:00)
[2021-08-09] MEDS ORDERED: Propofol 500 MG/50 ML VIAL IV PRN (21:15)
[2021-08-10] MEDS ORDERED: Dextrose 5 % And 0.9 % NaCl 1,000 ML IV SCH (00:30)
[2021-08-10] MEDS ORDERED: Fentanyl CADD 100 ML ONE (00:40)
[2021-08-10 04:05] LABS: #Eosinphils 0.2 thou/uL (0.0-0.7); #Lymphocytes 1.9 thou/uL (1.20-3.40); #Monocytes 0.8 thou/uL (0.11-0.59); #Neutrophils 6.9 thou/uL (1.40-6.50); %Basophils 0.3 % (0.0-1.0); %Eosinophils 1.8 % (0.0-10.0); %Lymphocytes 19.2 % (21.0-51.0); %Neutrophils 70.7 % (42.0-75.0); Hemoglobin 13.6 g/dL (14.0-18.0); Mean Corpuscular HGB CONC 31.8 g/dL (32.0-36.0); Mean Corpuscular Hemoglobin 26.5 pg (27.0-31.0); Mean Corpuscular Volume 83.5 fL (78.0-98.0); Mean Platelet Volume 9.2 fL (7.4-10.4); Platelet Count 202 thou/uL (130-400); Red Blood Cell (RBC) Count 5.12 mill/uL (4.70-6.10); White Blood Cell (WBC) Count 9.7 thou/uL (4.8-10.8)
[2021-08-10 04:10] LABS: Hemoglobin A1c 5.6 % (4.0-6.0)
[2021-08-10 04:23] LABS: Phosphorus 3.3 mg/dL (2.3-4.7)
[2021-08-10 04:27] LABS: ALT (SGPT) 22 U/L (8-55); AST (SGOT) 32 U/L (5-34); Albumin 3.7 g/dL (3.5-5.0); Alkaline Phosphatase 101 U/L (40-110); Anion Gap 13 mmol/L (10-20); BUN (Urea Nitrogen) 19 mg/dL (8.9-20.6); Bilirubin, Total 0.7 mg/dL (0.2-1.2); Calc. Creatinine Clearance 98 mL/min (70-130); Calcium 9.6 mg/dL (7.8-10.44); Carbon Dioxide 25 mmol/L (22-29); Cardiac Risk 4.7 (Less than 4.5); Chloride 105 mmol/L (98-107); Cholesterol 168 mg/dl (< 200 Desired); Globulin 3.3 g/dL (2.4-3.5); Glucose 136 mg/dL (70-105); HDL Cholesterol 36 mg/dL (>60 Neg Risk); LDL Cholesterol, Calculated 98 mg/dL; Potassium 4.3 mmol/L (3.5-5.1); Sodium 139 mmol/L (136-145); Triglycerides 169 mg/dL (Less than 150)
[2021-08-10 04:39] LABS: INR-International Normal Ratio 2.3; Prothrombin Time 25.6 sec (12.0-14.7)
[2021-08-10 04:40] LABS: PTT 53.9 sec (22.9-36.1)
[2021-08-10 07:55] LABS: Actual Bicarbonate (HCO3a) 26.1 mEq/L (22-28); Base Excess (BEa) 1.4 mEq/L (-2.0 to +3.0); CO2 Tension 41.7 mmHg (35.0-45.0); Carboxyhemoglobin (COHb) 0.9 gm% (0.0-3.0); Hemoglobin (Hb) 14.5 g/dL (14.0-18.0); Potassium - ABG Lab 3.94 mmol/L (3.70-5.30); pH, Arterial 7.42 (7.35-7.45)
[2021-08-10 08:34] LABS: Puncture Site RRA
[2021-08-10 08:35] LABS: ALV-art Gradient 74.425 mmHg (0-20)
[2021-08-10] MEDS ORDERED: Vancomycin 1 GM in Premix Bag 1 BAG IVPB SCH ×2 (09:00→17:00)
[2021-08-10] MEDS ORDERED: Aspirin 300 MG Suppository PR SCH (09:00)
[2021-08-10 10:24] LABS: Bacteria/HPF None Seen HPF (None Seen); Squamous Epithelial None Seen HPF (0-3); WBC/HPF 0-3 HPF (0-3)
[2021-08-10 10:26] LABS: Bilirubin Negative (Negative); Blood, Urine Large (Negative); Glucose, Urine (Dipstick) Negative (Negative); Ketone, Urine Trace mg/dL (Negative); Leukocyte Negative (Negative); Nitrite Negative (Negative); Protein, Urine (Dipstick) 100 mg/dL (Neg-Trace); Urobilinogen 0.2 mg/dL (Less than 2); pH, Urine 5.5 (5.0-9.0)
[2021-08-10 10:27] LABS: Clarity Clear (Clear); Specific Gravity, Urine 1.035 (1.002-1.036)
[2021-08-10 10:28] LABS: Urine Culture Reflex No No
[2021-08-10] MEDS: VANCOMYCIN 1.75 GM/350 ML BAG 1.75 GM in Premix Bag 1 BAG IVPB SCH (10:46)
[2021-08-10] MEDS: Cefepime 1 GM in Sodium Chloride 0.9% 100 ML IVPB SCH ×2 (10:48→20:14)
[2021-08-10] MEDS: Aspirin 325 MG TAB PO SCH (10:48)
[2021-08-10] MEDS: Pantoprazole 40 MG VIAL IVP SCH (10:49)
[2021-08-10] MEDS: Sodium Chloride 0.45% 1,000 ML IV SCH (13:56)
[2021-08-10] MEDS ORDERED: Magnesium 2 GM/50 ML 2 GM in Premix Bag 1 BAG IVPB SCH (15:00)
[2021-08-10] MEDS ORDERED: Propofol 1,000 MG/100 ML VIAL IV PRN (18:57)
[2021-08-10] MEDS: Atorvastatin Calcium 40 MG TAB PO SCH (20:14)
[2021-08-10] MEDS: VANCOMYCIN 1.25 GM/250 ML BAG 1.25 GM in Premix Bag 1 BAG IVPB SCH (22:07)
[2021-08-11 04:21] LABS: #Eosinphils 0.2 thou/uL (0.0-0.7); #Lymphocytes 1.7 thou/uL (1.20-3.40); #Monocytes 0.6 thou/uL (0.11-0.59); #Neutrophils 5.8 thou/uL (1.40-6.50); %Basophils 0.2 % (0.0-1.0); %Eosinophils 2.7 % (0.0-10.0); %Lymphocytes 20.5 % (21.0-51.0); %Monocytes 7.6 % (0.0-10.0); Hemoglobin 12.2 g/dL (14.0-18.0); Mean Corpuscular HGB CONC 32.4 g/dL (32.0-36.0); Mean Corpuscular Hemoglobin 27.2 pg (27.0-31.0); Mean Platelet Volume 9.4 fL (7.4-10.4); Platelet Count 160 thou/uL (130-400); Red Blood Cell (RBC) Count 4.46 mill/uL (4.70-6.10); White Blood Cell (WBC) Count 8.4 thou/uL (4.8-10.8)
[2021-08-11 04:31] LABS: INR-International Normal Ratio 2.3; Prothrombin Time 25.3 sec (12.0-14.7)
[2021-08-11 04:44] LABS: Phosphorus 3.1 mg/dL (2.3-4.7)
[2021-08-11 04:47] LABS: ALT (SGPT) 18 U/L (8-55); AST (SGOT) 26 U/L (5-34); Albumin 3.3 g/dL (3.5-5.0); Alkaline Phosphatase 83 U/L (40-110); Anion Gap 15 mmol/L (10-20); BUN (Urea Nitrogen) 14 mg/dL (8.9-20.6); Bilirubin, Total 0.9 mg/dL (0.2-1.2); Calc. Creatinine Clearance 122 mL/min (70-130); Calcium 8.4 mg/dL (7.8-10.44); Carbon Dioxide 20 mmol/L (22-29); Chloride 106 mmol/L (98-107); Globulin 3.1 g/dL (2.4-3.5); Glucose 192 mg/dL (70-105); Magnesium 2.2 mg/dL (1.6-2.6); Potassium 4.1 mmol/L (3.5-5.1); Protein, Total 6.4 g/dL (6.0-8.3); Sodium 137 mmol/L (136-145)
[2021-08-11] MEDS: Sodium Chloride 0.45% 1,000 ML IV SCH ×3 (04:51→17:17)
[2021-08-11] MEDS: VANCOMYCIN 1.75 GM/350 ML BAG 1.75 GM in Premix Bag 1 BAG IVPB SCH (08:05)
[2021-08-11] MEDS: Aspirin 325 MG TAB PO SCH (08:11)
[2021-08-11] MEDS: Pantoprazole 40 MG VIAL IVP SCH (08:11)
[2021-08-11] MEDS: Cefepime 1 GM in Sodium Chloride 0.9% 100 ML IVPB SCH ×2 (08:11→20:58)
[2021-08-11 08:12] LABS: Actual Bicarbonate (HCO3a) 22.7 mEq/L (22-28); Base Excess (BEa) -0.6 mEq/L (-2.0 to +3.0); CO2 Tension 32.9 mmHg (35.0-45.0); Calcium, Ionized (arterial) 1.12 mmol/L (1.12-1.30); Carboxyhemoglobin (COHb) 0.2 gm% (0.0-3.0); O2 Tension (PaO2), arterial 131.4 mmHg (80.0-100.0); Potassium - ABG Lab 3.68 mmol/L (3.70-5.30); pH, Arterial 7.46 (7.35-7.45)
[2021-08-11 09:02] LABS: ALV-art Gradient 77.025 mmHg (0-20); Puncture Site RRA
[2021-08-11] MEDS: VANCOMYCIN 1.25 GM/250 ML BAG 1.25 GM in Premix Bag 1 BAG IVPB SCH (11:43)
[2021-08-11] MEDS ORDERED: Furosemide 20 MG/2 ML VIAL SLOW IVP SCH (13:45)
[2021-08-11] MEDS: Atorvastatin Calcium 40 MG TAB PO SCH (21:09)
[2021-08-11] MEDS ORDERED: Vancomycin HCl 1.25 GM in Sodium Chloride 0.9% 250 ML 250 ML IVPB SCH (23:00)
[2021-08-12 04:17] LABS: #Eosinphils 0.3 thou/uL (0.0-0.7); #Lymphocytes 1.8 thou/uL (1.20-3.40); #Monocytes 0.6 thou/uL (0.11-0.59); #Neutrophils 5.5 thou/uL (1.40-6.50); %Basophils 0.4 % (0.0-1.0); %Eosinophils 3.7 % (0.0-10.0); %Lymphocytes 21.4 % (21.0-51.0); %Neutrophils 67.4 % (42.0-75.0); Hemoglobin 12.9 g/dL (14.0-18.0); Mean Corpuscular Hemoglobin 27.1 pg (27.0-31.0); Mean Corpuscular Volume 84.6 fL (78.0-98.0); Mean Platelet Volume 9.4 fL (7.4-10.4); Platelet Count 171 thou/uL (130-400); RBC Distribution Width 14.7 % (11.5-14.5); Red Blood Cell (RBC) Count 4.77 mill/uL (4.70-6.10); White Blood Cell (WBC) Count 8.2 thou/uL (4.8-10.8)
[2021-08-12 04:24] LABS: INR-International Normal Ratio 1.6; Prothrombin Time 19.5 sec (12.0-14.7)
[2021-08-12 04:26] LABS: PTT 46.4 sec (22.9-36.1)
[2021-08-12 04:50] LABS: ALT (SGPT) 22 U/L (8-55); AST (SGOT) 31 U/L (5-34); Albumin 3.9 g/dL (3.5-5.0); Alkaline Phosphatase 96 U/L (40-110); Anion Gap 15 mmol/L (10-20); BUN (Urea Nitrogen) 9 mg/dL (8.9-20.6); Bilirubin, Total 1.1 mg/dL (0.2-1.2); Calc. Creatinine Clearance 129 mL/min (70-130); Calcium 8.6 mg/dL (7.8-10.44); Carbon Dioxide 25 mmol/L (22-29); Chloride 104 mmol/L (98-107); Globulin 3.5 g/dL (2.4-3.5); Glucose 98 mg/dL (70-105); Magnesium 1.9 mg/dL (1.6-2.6); Phosphorus 3.5 mg/dL (2.3-4.7); Potassium 4.1 mmol/L (3.5-5.1); Protein, Total 7.4 g/dL (6.0-8.3); Sodium 140 mmol/L (136-145)
[2021-08-12] MEDS ORDERED: Magnesium 2 GM/50 ML 2 GM in Premix Bag 1 BAG IVPB SCH (06:30)
[2021-08-12] MEDS: Cefepime 1 GM in Sodium Chloride 0.9% 100 ML IVPB SCH ×2 (09:14→21:27)
[2021-08-12] MEDS: Pantoprazole 40 MG VIAL IVP SCH (09:14)
[2021-08-12] MEDS: Vancomycin 1.5 GRAM/300 ML BAG 1.5 GM in Premix Bag 1 BAG IVPB SCH ×2 (10:30→22:29)
[2021-08-12] MEDS: Heparin 25,000 units/D5W 500 ML IV SCH (12:21)
[2021-08-12] MEDS ORDERED: Aspirin 300 MG Suppository PR SCH (12:45)
[2021-08-12] MEDS: Sodium Chloride 0.45% 1,000 ML IV SCH (21:23)
[2021-08-12] MEDS: Atorvastatin Calcium 40 MG TAB PO SCH (21:27)
[2021-08-13 01:57] LABS: INR-International Normal Ratio 1.4; Prothrombin Time 17.5 sec (12.0-14.7)
[2021-08-13 01:58] LABS: PTT 61.3 sec (22.9-36.1)
[2021-08-13 04:40] LABS: #Eosinphils 0.3 thou/uL (0.0-0.7); #Lymphocytes 1.3 thou/uL (1.20-3.40); #Monocytes 0.5 thou/uL (0.11-0.59); %Basophils 0.6 % (0.0-1.0); %Eosinophils 6.1 % (0.0-10.0); %Lymphocytes 25.3 % (21.0-51.0); %Monocytes 9.1 % (0.0-10.0); %Neutrophils 58.8 % (42.0-75.0); Hemoglobin 11.8 g/dL (14.0-18.0); Mean Corpuscular HGB CONC 33.5 g/dL (32.0-36.0); Mean Corpuscular Hemoglobin 28.1 pg (27.0-31.0); Mean Corpuscular Volume 84.1 fL (78.0-98.0); Mean Platelet Volume 8.7 fL (7.4-10.4); Platelet Count 183 thou/uL (130-400); RBC Distribution Width 14.5 % (11.5-14.5); Red Blood Cell (RBC) Count 4.18 mill/uL (4.70-6.10)
[2021-08-13 04:50] LABS: INR-International Normal Ratio 1.4; Prothrombin Time 16.7 sec (12.0-14.7)
[2021-08-13] MEDS: Sodium Chloride 0.45% 1,000 ML IV SCH (04:54)
[2021-08-13 05:03] LABS: ALT (SGPT) 18 U/L (8-55); AST (SGOT) 25 U/L (5-34); Albumin 3.5 g/dL (3.5-5.0); Alkaline Phosphatase 82 U/L (40-110); Anion Gap 14 mmol/L (10-20); BUN (Urea Nitrogen) 10 mg/dL (8.9-20.6); Bilirubin, Total 0.9 mg/dL (0.2-1.2); Calc. Creatinine Clearance 118 mL/min (70-130); Calcium 9.4 mg/dL (7.8-10.44); Carbon Dioxide 25 mmol/L (22-29); Chloride 103 mmol/L (98-107); Globulin 3.9 g/dL (2.4-3.5); Glucose 83 mg/dL (70-105); Magnesium 1.9 mg/dL (1.6-2.6); Potassium 3.9 mmol/L (3.5-5.1); Protein, Total 7.4 g/dL (6.0-8.3); Sodium 138 mmol/L (136-145)
[2021-08-13] MEDS ORDERED: Magnesium 2 GM/50 ML 2 GM in Premix Bag 1 BAG IVPB SCH (05:30)
[2021-08-13] MEDS: Aspirin 325 MG TAB PO SCH (07:19)
[2021-08-13] MEDS: Cefepime 1 GM in Sodium Chloride 0.9% 100 ML IVPB SCH ×2 (07:52→20:10)
[2021-08-13] MEDS: Pantoprazole 40 MG VIAL IVP SCH (07:52)
[2021-08-13] MEDS: Aspirin 300 MG Suppository PR SCH (07:52)
[2021-08-13 08:38] LABS: INR-International Normal Ratio 1.4
[2021-08-13 08:40] LABS: PTT 41.4 sec (22.9-36.1)
[2021-08-13] MEDS ORDERED: Heparin 10,000 UNITS/ 10 ML VIAL SLOW IVP SCH (09:45)
[2021-08-13] MEDS: Vancomycin 1.5 GRAM/300 ML BAG 1.5 GM in Premix Bag 1 BAG IVPB SCH ×2 (11:43→22:57)
[2021-08-13] MEDS ORDERED: Warfarin Sodium 5 MG TAB PO SCH (17:00)
[2021-08-13] MEDS: Atorvastatin Calcium 40 MG TAB PO SCH (20:11)
[2021-08-13 21:09] LABS: Vancomycin, Trough 19.4 ug/mL
[2021-08-14] MEDS: Sodium Chloride 0.45% 1,000 ML IV SCH (00:20)
[2021-08-14] MEDS: Heparin 25,000 units/D5W 500 ML IV SCH (01:44)
[2021-08-14 03:41] LABS: #Eosinphils 0.3 thou/uL (0.0-0.7); #Lymphocytes 1.5 thou/uL (1.20-3.40); #Monocytes 0.5 thou/uL (0.11-0.59); #Neutrophils 2.8 thou/uL (1.40-6.50); %Basophils 0.9 % (0.0-1.0); %Eosinophils 5.5 % (0.0-10.0); %Monocytes 9.4 % (0.0-10.0); %Neutrophils 54.2 % (42.0-75.0); Hemoglobin 12.6 g/dL (14.0-18.0); Mean Corpuscular HGB CONC 33.6 g/dL (32.0-36.0); Mean Corpuscular Hemoglobin 27.8 pg (27.0-31.0); Mean Corpuscular Volume 82.7 fL (78.0-98.0); Mean Platelet Volume 8.7 fL (7.4-10.4); Platelet Count 213 thou/uL (130-400); RBC Distribution Width 14.6 % (11.5-14.5); Red Blood Cell (RBC) Count 4.52 mill/uL (4.70-6.10); White Blood Cell (WBC) Count 5.1 thou/uL (4.8-10.8)
[2021-08-14 03:54] LABS: INR-International Normal Ratio 1.2; Prothrombin Time 15.5 sec (12.0-14.7)
[2021-08-14 03:55] LABS: PTT 46.3 sec (22.9-36.1)
[2021-08-14 04:02] LABS: ALT (SGPT) 16 U/L (8-55); AST (SGOT) 24 U/L (5-34); Albumin 3.8 g/dL (3.5-5.0); Alkaline Phosphatase 89 U/L (40-110); Anion Gap 15 mmol/L (10-20); BUN (Urea Nitrogen) 8 mg/dL (8.9-20.6); Bilirubin, Total 0.7 mg/dL (0.2-1.2); Calc. Creatinine Clearance 124 mL/min (70-130); Calcium 9.5 mg/dL (7.8-10.44); Carbon Dioxide 24 mmol/L (22-29); Chloride 105 mmol/L (98-107); Globulin 3.3 g/dL (2.4-3.5); Glucose 90 mg/dL (70-105); Magnesium 2.3 mg/dL (1.6-2.6); Protein, Total 7.1 g/dL (6.0-8.3); Sodium 140 mmol/L (136-145)
[2021-08-14] MEDS: Cefepime 1 GM in Sodium Chloride 0.9% 100 ML IVPB SCH ×2 (09:28→23:14)
[2021-08-14] MEDS: Aspirin 300 MG Suppository PR SCH (09:28)
[2021-08-14] MEDS: Pantoprazole 40 MG VIAL IVP SCH (09:29)
[2021-08-14 11:08] LABS: INR-International Normal Ratio 1.2; PTT 25.1 sec (22.9-36.1); Prothrombin Time 15.3 sec (12.0-14.7)
[2021-08-14] MEDS: Vancomycin 1.5 GRAM/300 ML BAG 1.5 GM in Premix Bag 1 BAG IVPB SCH (12:14)
[2021-08-14 13:20] LABS: INR-International Normal Ratio 1.2; Prothrombin Time 15.4 sec (12.0-14.7)
[2021-08-14 13:21] LABS: PTT 49.3 sec (22.9-36.1)
[2021-08-14] MEDS ORDERED: Nebivolol HCl 5 MG TAB PO SCH (15:15)
[2021-08-14] MEDS ORDERED: Warfarin Sodium 5 MG TAB PO SCH (17:00)
[2021-08-14 20:52] LABS: #Eosinphils 0.2 thou/uL (0.0-0.7); #Lymphocytes 1.4 thou/uL (1.20-3.40); #Monocytes 0.4 thou/uL (0.11-0.59); #Neutrophils 2.4 thou/uL (1.40-6.50); %Basophils 0.6 % (0.0-1.0); %Eosinophils 4.5 % (0.0-10.0); %Lymphocytes 31.8 % (21.0-51.0); %Monocytes 9.3 % (0.0-10.0); %Neutrophils 53.8 % (42.0-75.0); Hemoglobin 12.3 g/dL (14.0-18.0); Mean Corpuscular HGB CONC 32.5 g/dL (32.0-36.0); Mean Corpuscular Hemoglobin 26.8 pg (27.0-31.0); Mean Corpuscular Volume 82.7 fL (78.0-98.0); Platelet Count 241 thou/uL (130-400); RBC Distribution Width 14.4 % (11.5-14.5); Red Blood Cell (RBC) Count 4.59 mill/uL (4.70-6.10); White Blood Cell (WBC) Count 4.5 thou/uL (4.8-10.8)
[2021-08-14 21:16] LABS: Albumin 3.8 g/dL (3.5-5.0)
[2021-08-14 21:17] LABS: Chloride 106 mmol/L (98-107); Potassium 4.1 mmol/L (3.5-5.1)
[2021-08-14 21:18] LABS: Calcium 9.2 mg/dL (7.8-10.44); Sodium 137 mmol/L (136-145)
[2021-08-14 21:19] LABS: Globulin 3.5 g/dL (2.4-3.5); Glucose 127 mg/dL (70-105); Protein, Total 7.3 g/dL (6.0-8.3)
[2021-08-14 21:20] LABS: Carbon Dioxide 20 mmol/L (22-29)
[2021-08-14 21:21] LABS: Alkaline Phosphatase 86 U/L (40-110); Bilirubin, Total 0.6 mg/dL (0.2-1.2)
[2021-08-14 21:22] LABS: Calc. Creatinine Clearance 119 mL/min (70-130)
[2021-08-14 21:23] LABS: BUN (Urea Nitrogen) 10 mg/dL (8.9-20.6)
[2021-08-14 21:24] LABS: AST (SGOT) 25 U/L (5-34)
[2021-08-14 21:25] LABS: ALT (SGPT) 15 U/L (8-55)
[2021-08-14] MEDS: Atorvastatin Calcium 40 MG TAB PO SCH (23:20)
[2021-08-15] MEDS: Vancomycin 1.5 GRAM/300 ML BAG 1.5 GM in Premix Bag 1 BAG IVPB SCH (00:10)
[2021-08-15] MEDS: Sodium Chloride 0.45% 1,000 ML IV SCH ×2 (00:11→15:23)
[2021-08-15] MEDS: Heparin 25,000 units/D5W 500 ML IV SCH (03:39)
[2021-08-15 05:13] LABS: #Eosinphils 0.2 thou/uL (0.0-0.7); #Lymphocytes 1.4 thou/uL (1.20-3.40); #Monocytes 0.4 thou/uL (0.11-0.59); #Neutrophils 1.7 thou/uL (1.40-6.50); %Basophils 0.2 % (0.0-1.0); %Eosinophils 5.5 % (0.0-10.0); %Lymphocytes 37.2 % (21.0-51.0); %Monocytes 10.4 % (0.0-10.0); %Neutrophils 46.7 % (42.0-75.0); Hemoglobin 12.8 g/dL (14.0-18.0); Mean Corpuscular HGB CONC 32.1 g/dL (32.0-36.0); Mean Corpuscular Hemoglobin 26.5 pg (27.0-31.0); Mean Corpuscular Volume 82.6 fL (78.0-98.0); Mean Platelet Volume 8.5 fL (7.4-10.4); Platelet Count 213 thou/uL (130-400); RBC Distribution Width 14.6 % (11.5-14.5); Red Blood Cell (RBC) Count 4.83 mill/uL (4.70-6.10); White Blood Cell (WBC) Count 3.7 thou/uL (4.8-10.8)
[2021-08-15 05:24] LABS: INR-International Normal Ratio 1.2
[2021-08-15 05:25] LABS: PTT 60.1 sec (22.9-36.1)
[2021-08-15 05:37] LABS: ALT (SGPT) 12 U/L (8-55); AST (SGOT) 21 U/L (5-34); Albumin 3.7 g/dL (3.5-5.0); Alkaline Phosphatase 82 U/L (40-110); Anion Gap 12 mmol/L (10-20); BUN (Urea Nitrogen) 8 mg/dL (8.9-20.6); Bilirubin, Total 0.7 mg/dL (0.2-1.2); Calc. Creatinine Clearance 120 mL/min (70-130); Calcium 9.1 mg/dL (7.8-10.44); Carbon Dioxide 24 mmol/L (22-29); Chloride 106 mmol/L (98-107); Globulin 3.3 g/dL (2.4-3.5); Glucose 94 mg/dL (70-105); Magnesium 1.9 mg/dL (1.6-2.6); Phosphorus 3.3 mg/dL (2.3-4.7); Potassium 4.1 mmol/L (3.5-5.1); Sodium 138 mmol/L (136-145)
[2021-08-15] MEDS: Atorvastatin Calcium 40 MG TAB PO SCH (05:39)
[2021-08-15] MEDS ORDERED: Magnesium 2 GM/50 ML 2 GM in Premix Bag 1 BAG IVPB SCH (06:15)
[2021-08-15] MEDS: Nebivolol HCl 5 MG TAB PO SCH (08:43)
[2021-08-15] MEDS: Pantoprazole 40 MG VIAL IVP SCH (08:45)
[2021-08-15] MEDS ORDERED: Aspirin 325 MG TAB PO SCH ×2 (09:00→10:03)
[2021-08-15] MEDS ORDERED: NIFEdipine XL 30 MG TAB PO SCH ×2 (10:03→10:15)
[2021-08-15] MEDS ORDERED: Aspirin Chewable 81 MG TAB PO SCH (10:15)
[2021-08-15 10:39] LABS: INR-International Normal Ratio 1.2; Prothrombin Time 14.8 sec (12.0-14.7)
[2021-08-15 10:40] LABS: PTT 57.4 sec (22.9-36.1)
[2021-08-15] MEDS ORDERED: Warfarin Sodium 5 MG TAB PO SCH (17:00)
[2021-08-15] MEDS ORDERED: Warfarin Sodium 7.5 MG TAB PO SCH (17:00)
[2021-08-16] MEDS: Atorvastatin Calcium 40 MG TAB PO SCH ×2 (01:13→20:25)
[2021-08-16] MEDS: Sodium Chloride 0.45% 1,000 ML IV SCH (03:51)
[2021-08-16 05:13] LABS: INR-International Normal Ratio 1.2; Prothrombin Time 15.1 sec (12.0-14.7)
[2021-08-16 05:15] LABS: PTT 71.5 sec (22.9-36.1)
[2021-08-16] MEDS: Heparin 25,000 units/D5W 500 ML IV SCH (07:40)
[2021-08-16] MEDS ORDERED: Magnesium 2 GM/50 ML 2 GM in Premix Bag 1 BAG IVPB SCH (09:00)
[2021-08-16] MEDS: NIFEdipine XL 30 MG TAB PO SCH (10:19)
[2021-08-16] MEDS: Aspirin Chewable 81 MG TAB PO SCH (10:19)
[2021-08-16] MEDS: Pantoprazole 40 MG VIAL IVP SCH (10:19)
[2021-08-16] MEDS: Nebivolol HCl 5 MG TAB PO SCH (10:20)
[2021-08-16 10:48] LABS: INR-International Normal Ratio 1.2; PTT 50.3 sec (22.9-36.1)
[2021-08-16] MEDS: Warfarin Sodium 10 MG TAB PO SCH (17:58)
[2021-08-17] MEDS: Sodium Chloride 0.45% 1,000 ML IV SCH ×2 (08:26→23:17)
[2021-08-17] MEDS: NIFEdipine XL 30 MG TAB PO SCH (09:42)
[2021-08-17] MEDS: Nebivolol HCl 5 MG TAB PO SCH (09:43)
[2021-08-17] MEDS: Aspirin Chewable 81 MG TAB PO SCH (09:43)
[2021-08-17] MEDS: Pantoprazole 40 MG VIAL IVP SCH (09:43)
[2021-08-17 10:52] LABS: INR-International Normal Ratio 1.2; PTT 54.9 sec (22.9-36.1); Prothrombin Time 15.4 sec (12.0-14.7)
[2021-08-17 11:10] LABS: Magnesium 1.7 mg/dL (1.6-2.6)
[2021-08-17] MEDS ORDERED: Magnesium 2 GM/50 ML 2 GM in Premix Bag 1 BAG IVPB SCH (12:30)
[2021-08-17 13:30] LABS: SARS-CoV-2 PCR by NAA Not Detected (NotDetected)
[2021-08-17] MEDS: Heparin 25,000 units/D5W 500 ML IV SCH (15:25)
[2021-08-17] MEDS: Warfarin Sodium 10 MG TAB PO SCH (17:49)
[2021-08-17] MEDS: Atorvastatin Calcium 40 MG TAB PO SCH (23:17)
[2021-08-18 06:24] LABS: INR-International Normal Ratio 1.3; Prothrombin Time 16.2 sec (12.0-14.7)
[2021-08-18 06:34] LABS: Magnesium 1.9 mg/dL (1.6-2.6)
[2021-08-18] MEDS ORDERED: Magnesium 2 GM/50 ML 2 GM in Premix Bag 1 BAG IVPB SCH (07:30)
[2021-08-18] MEDS ORDERED: Losartan 25 MG TAB PO SCH ×3 (09:00→11:00)
[2021-08-18] MEDS: NIFEdipine XL 30 MG TAB PO SCH (10:20)
[2021-08-18] MEDS: Nebivolol HCl 5 MG TAB PO SCH (10:20)
[2021-08-18] MEDS: Aspirin Chewable 81 MG TAB PO SCH (10:20)
[2021-08-18] MEDS: Sodium Chloride 0.45% 1,000 ML IV SCH ×2 (17:58→20:55)
[2021-08-18] MEDS: Warfarin Sodium 10 MG TAB PO SCH (18:00)
[2021-08-18] MEDS: Atorvastatin Calcium 40 MG TAB PO SCH (20:56)
[2021-08-19] MEDS: Heparin 25,000 units/D5W 500 ML IV SCH (03:13)
[2021-08-19] MEDS: hydrALAZINE 20 MG/ML VIAL SLOW IVP PRN ×2 (03:29→16:21)
[2021-08-19 05:54] LABS: INR-International Normal Ratio 1.4; PTT 46.3 sec (22.9-36.1)
[2021-08-19] MEDS: Losartan 25 MG TAB PO SCH (09:53)
[2021-08-19] MEDS: Nebivolol HCl 5 MG TAB PO SCH (09:53)
[2021-08-19] MEDS: Aspirin Chewable 81 MG TAB PO SCH (09:53)
[2021-08-19] MEDS: NIFEdipine XL 30 MG TAB PO SCH (09:53)
[2021-08-19 15:31] LABS: Albumin 3.4 g/dL (3.5-5.0)
[2021-08-19 15:32] LABS: Chloride 107 mmol/L (98-107); Sodium 139 mmol/L (136-145)
[2021-08-19 15:33] LABS: Calcium 8.7 mg/dL (7.8-10.44); Globulin 3.4 g/dL (2.4-3.5); Glucose 108 mg/dL (70-105); Protein, Total 6.8 g/dL (6.0-8.3)
[2021-08-19 15:35] LABS: Bilirubin, Total 0.4 mg/dL (0.2-1.2); Carbon Dioxide 18 mmol/L (22-29)
[2021-08-19 15:36] LABS: Alkaline Phosphatase 83 U/L (40-110)
[2021-08-19 15:37] LABS: BUN (Urea Nitrogen) 6 mg/dL (8.9-20.6); Calc. Creatinine Clearance 133 mL/min (70-130)
[2021-08-19 15:38] LABS: AST (SGOT) 51 U/L (5-34)
[2021-08-19 15:39] LABS: ALT (SGPT) 33 U/L (8-55)
[2021-08-19 15:58] LABS: Anion Gap 19 mmol/L (10-20)
[2021-08-19] MEDS: Sodium Chloride 0.45% 1,000 ML IV SCH (16:19)
[2021-08-19] MEDS: Warfarin Sodium 10 MG TAB PO SCH (16:21)
[2021-08-19] MEDS ORDERED: Warfarin Sodium 2.5 MG TAB PO SCH (17:00)
[2021-08-19] MEDS: Atorvastatin Calcium 40 MG TAB PO SCH (20:41)
[2021-08-20 06:05] LABS: INR-International Normal Ratio 1.4; Prothrombin Time 17.7 sec (12.0-14.7)
[2021-08-20] MEDS ORDERED: Warfarin Sodium 5 MG TAB PO SCH (08:00)
[2021-08-20 09:51] LABS: Magnesium 1.9 mg/dL (1.6-2.6)
[2021-08-20] MEDS: NIFEdipine XL 30 MG TAB PO SCH (09:58)
[2021-08-20] MEDS: Aspirin Chewable 81 MG TAB PO SCH (09:58)
[2021-08-20] MEDS: Nebivolol HCl 5 MG TAB PO SCH (10:00)
[2021-08-20] MEDS: Losartan 25 MG TAB PO SCH (10:00)
[2021-08-20] MEDS ORDERED: Magnesium 2 GM/50 ML 2 GM in Premix Bag 1 BAG IVPB SCH (11:00)
[2021-08-20] MEDS: Heparin 25,000 units/D5W 500 ML IV SCH (14:10)
[2021-08-20] MEDS: Sodium Chloride 0.45% 1,000 ML IV SCH (14:48)
[2021-08-20] MEDS: Warfarin Sodium 10 MG TAB PO SCH (18:26)
[2021-08-20] MEDS: Atorvastatin Calcium 40 MG TAB PO SCH (21:59)
[2021-08-21 05:41] LABS: INR-International Normal Ratio 1.6; Prothrombin Time 19.7 sec (12.0-14.7)
[2021-08-21 06:11] LABS: BUN (Urea Nitrogen) 5 mg/dL (8.9-20.6); Calc. Creatinine Clearance 119 mL/min (70-130); Calcium 9.4 mg/dL (7.8-10.44); Carbon Dioxide 26 mmol/L (22-29); Chloride 104 mmol/L (98-107); Glucose 114 mg/dL (70-105); Magnesium 2.2 mg/dL (1.6-2.6); Potassium 4.3 mmol/L (3.5-5.1); Sodium 141 mmol/L (136-145)
[2021-08-21 06:13] LABS: Anion Gap 14 mmol/L (10-20)
[2021-08-21] MEDS ORDERED: Warfarin Sodium 5 MG TAB PO SCH (07:45)
[2021-08-21] MEDS: NIFEdipine XL 30 MG TAB PO SCH (10:30)
[2021-08-21] MEDS: Nebivolol HCl 5 MG TAB PO SCH (10:31)
[2021-08-21] MEDS: Aspirin Chewable 81 MG TAB PO SCH (10:31)
[2021-08-21] MEDS: Losartan 25 MG TAB PO SCH (10:31)
[2021-08-21] MEDS: Sodium Chloride 0.45% 1,000 ML IV SCH (11:35)
[2021-08-21] MEDS: Warfarin Sodium 10 MG TAB PO SCH (16:36)
[2021-08-21] MEDS: Atorvastatin Calcium 40 MG TAB PO SCH (21:52)
[2021-08-22 05:50] LABS: INR-International Normal Ratio 1.9
[2021-08-22 06:13] LABS: ALT (SGPT) 47 U/L (8-55); AST (SGOT) 56 U/L (5-34); Albumin 3.9 g/dL (3.5-5.0); Alkaline Phosphatase 90 U/L (40-110); Anion Gap 11 mmol/L (10-20); BUN (Urea Nitrogen) 6 mg/dL (8.9-20.6); Bilirubin, Total 0.5 mg/dL (0.2-1.2); Calc. Creatinine Clearance 113 mL/min (70-130); Calcium 9.6 mg/dL (7.8-10.44); Carbon Dioxide 29 mmol/L (22-29); Chloride 103 mmol/L (98-107); Globulin 3.2 g/dL (2.4-3.5); Glucose 95 mg/dL (70-105); Potassium 4.2 mmol/L (3.5-5.1); Protein, Total 7.1 g/dL (6.0-8.3); Sodium 139 mmol/L (136-145)
[2021-08-22] MEDS ORDERED: Warfarin Sodium 2.5 MG TAB PO SCH (08:15)
[2021-08-22] MEDS: NIFEdipine XL 30 MG TAB PO SCH (09:42)
[2021-08-22] MEDS: Losartan 25 MG TAB PO SCH (09:42)
[2021-08-22] MEDS: Aspirin Chewable 81 MG TAB PO SCH (09:42)
[2021-08-22] MEDS: Nebivolol HCl 5 MG TAB PO SCH (09:42)
[2021-08-22] MEDS: Sodium Chloride 0.45% 1,000 ML IV SCH (17:57)
[2021-08-22] MEDS: Warfarin Sodium 10 MG TAB PO SCH (17:58)
[2021-08-22] MEDS: Atorvastatin Calcium 40 MG TAB PO SCH (20:57)
[2021-08-23 05:47] LABS: INR-International Normal Ratio 2.1; Prothrombin Time 23.5 sec (12.0-14.7)
[2021-08-23] MEDS ORDERED: Warfarin Sodium 2.5 MG TAB PO SCH ×4 (07:45→17:00)
[2021-08-23] MEDS: NIFEdipine XL 90 MG TAB PO SCH (08:31)
[2021-08-23] MEDS: Nebivolol HCl 5 MG TAB PO SCH (08:32)
[2021-08-23] MEDS: Aspirin Chewable 81 MG TAB PO SCH (08:32)
[2021-08-23] MEDS: Losartan 25 MG TAB PO SCH (08:32)
[2021-08-23 12:22] LABS: Prothrombin Time 22.8 sec (12.0-14.7)
[2021-08-23] MEDS: Warfarin Sodium 10 MG TAB PO SCH (17:19)
[2021-08-23] MEDS: Heparin 25,000 units/D5W 500 ML IV SCH (17:22)
[2021-08-23] MEDS: Atorvastatin Calcium 40 MG TAB PO SCH (21:21)
[2021-08-24] MEDS: Losartan 25 MG TAB PO SCH (09:47)
[2021-08-24] MEDS: NIFEdipine XL 90 MG TAB PO SCH (09:47)
[2021-08-24] MEDS: Aspirin Chewable 81 MG TAB PO SCH (09:47)
[2021-08-24] MEDS: Nebivolol HCl 5 MG TAB PO SCH (09:48)
[2021-08-24 12:09] LABS: #Eosinphils 0.2 thou/uL (0.0-0.7); #Lymphocytes 1.6 thou/uL (1.20-3.40); #Monocytes 0.5 thou/uL (0.11-0.59); %Basophils 0.7 % (0.0-1.0); %Eosinophils 2.7 % (0.0-10.0); %Lymphocytes 25.9 % (21.0-51.0); %Monocytes 7.4 % (0.0-10.0); %Neutrophils 63.3 % (42.0-75.0); Hemoglobin 13.3 g/dL (14.0-18.0); Mean Corpuscular HGB CONC 31.5 g/dL (32.0-36.0); Mean Corpuscular Hemoglobin 27.2 pg (27.0-31.0); Mean Corpuscular Volume 86.5 fL (78.0-98.0); Mean Platelet Volume 8.6 fL (7.4-10.4); Platelet Count 210 thou/uL (130-400); RBC Distribution Width 15.8 % (11.5-14.5); White Blood Cell (WBC) Count 6.3 thou/uL (4.8-10.8)
[2021-08-24 12:23] LABS: INR-International Normal Ratio 2.1; Prothrombin Time 24.3 sec (12.0-14.7)
[2021-08-24 12:24] LABS: PTT 59.9 sec (22.9-36.1)
[2021-08-24 13:21] LABS: Anion Gap 12 mmol/L (10-20); BUN (Urea Nitrogen) 10 mg/dL (8.9-20.6); Calc. Creatinine Clearance 111 mL/min (70-130); Calcium 9.5 mg/dL (7.8-10.44); Carbon Dioxide 28 mmol/L (22-29); Chloride 105 mmol/L (98-107); Glucose 109 mg/dL (70-105); Magnesium 1.9 mg/dL (1.6-2.6); Phosphorus 3.5 mg/dL (2.3-4.7); Potassium 4.2 mmol/L (3.5-5.1); Sodium 141 mmol/L (136-145)
[2021-08-24] MEDS ORDERED: Magnesium Sulfate 2 GM in Sodium Chloride 0.9% 100 ML IVPB SCH (14:30)
[2021-08-24] MEDS ORDERED: Magnesium 2 GM/50 ML 2 GM in Premix Bag 1 BAG IVPB SCH (14:45)
[2021-08-24] MEDS: Warfarin Sodium 10 MG TAB PO SCH (16:39)
[2021-08-24] MEDS ORDERED: Warfarin Sodium 5 MG TAB PO SCH (17:00)
[2021-08-24] MEDS: Atorvastatin Calcium 40 MG TAB PO SCH (20:46)
[2021-08-25 06:01] LABS: INR-International Normal Ratio 2.3; Prothrombin Time 25.5 sec (12.0-14.7)
[2021-08-25] MEDS: Aspirin Chewable 81 MG TAB PO SCH (09:52)
[2021-08-25] MEDS: Nebivolol HCl 5 MG TAB PO SCH (09:52)
[2021-08-25] MEDS: NIFEdipine XL 90 MG TAB PO SCH (09:52)
[2021-08-25] MEDS: Losartan 25 MG TAB PO SCH (09:52)
[2021-08-25] MEDS: Warfarin Sodium 10 MG TAB PO SCH (16:44)
[2021-08-25] MEDS ORDERED: Warfarin Sodium 2.5 MG TAB PO SCH (17:00)
[2021-08-25 18:37] LABS: SARS-CoV-2 PCR by NAA Not Detected (NotDetected)
[2021-08-25] MEDS: Atorvastatin Calcium 40 MG TAB PO SCH (22:20)
[2021-08-26 06:48] LABS: #Eosinphils 0.2 thou/uL (0.0-0.7); #Lymphocytes 1.9 thou/uL (1.20-3.40); #Monocytes 0.5 thou/uL (0.11-0.59); #Neutrophils 3.2 thou/uL (1.40-6.50); %Basophils 0.5 % (0.0-1.0); %Eosinophils 3.7 % (0.0-10.0); %Lymphocytes 32.6 % (21.0-51.0); %Monocytes 8.6 % (0.0-10.0); %Neutrophils 54.7 % (42.0-75.0); Hemoglobin 12.8 g/dL (14.0-18.0); Mean Corpuscular HGB CONC 30.9 g/dL (32.0-36.0); Mean Corpuscular Hemoglobin 27.2 pg (27.0-31.0); Mean Corpuscular Volume 87.8 fL (78.0-98.0); Mean Platelet Volume 9.6 fL (7.4-10.4); Platelet Count 176 thou/uL (130-400); RBC Distribution Width 15.9 % (11.5-14.5); Red Blood Cell (RBC) Count 4.73 mill/uL (4.70-6.10); White Blood Cell (WBC) Count 5.8 thou/uL (4.8-10.8)
[2021-08-26 07:00] LABS: INR-International Normal Ratio 2.5; Prothrombin Time 27.1 sec (12.0-14.7)
[2021-08-26 07:06] LABS: Anion Gap 13 mmol/L (10-20); BUN (Urea Nitrogen) 14 mg/dL (8.9-20.6); Calc. Creatinine Clearance 104 mL/min (70-130); Calcium 9.1 mg/dL (7.8-10.44); Carbon Dioxide 25 mmol/L (22-29); Chloride 105 mmol/L (98-107); Glucose 94 mg/dL (70-105); Potassium 4.2 mmol/L (3.5-5.1); Sodium 139 mmol/L (136-145)
[2021-08-26] MEDS: Aspirin Chewable 81 MG TAB PO SCH (09:15)
[2021-08-26] MEDS: NIFEdipine XL 90 MG TAB PO SCH (09:15)
[2021-08-26] MEDS: Nebivolol HCl 5 MG TAB PO SCH (09:16)
[2021-08-26] MEDS: Losartan 25 MG TAB PO SCH (09:17)
[2021-08-26 09:44] LABS: Magnesium 2.1 mg/dL (1.6-2.6)
[2021-08-26 10:37] VITALS: BMI 28.3
[2021-08-26] MEDS: Warfarin Sodium 10 MG TAB PO SCH (16:41)
[2021-08-26] MEDS: Atorvastatin Calcium 40 MG TAB PO SCH (22:46)
[2021-08-27 06:23] LABS: INR-International Normal Ratio 2.4; Prothrombin Time 26.8 sec (12.0-14.7)
[2021-08-27] MEDS: NIFEdipine XL 90 MG TAB PO SCH (08:30)
[2021-08-27] MEDS: Aspirin Chewable 81 MG TAB PO SCH (08:31)
[2021-08-27] MEDS: Nebivolol HCl 5 MG TAB PO SCH (08:31)
[2021-08-27] MEDS: Losartan 25 MG TAB PO SCH (08:32)
[2021-08-27] MEDS: Warfarin Sodium 10 MG TAB PO SCH (17:08)
[2021-08-27] MEDS: Warfarin Sodium 2.5 MG TAB PO SCH (17:09)
[2021-08-27] MEDS: Atorvastatin Calcium 40 MG TAB PO SCH (20:14)
[2021-08-28 06:16] LABS: #Eosinphils 0.2 thou/uL (0.0-0.7); #Lymphocytes 1.7 thou/uL (1.20-3.40); #Monocytes 0.4 thou/uL (0.11-0.59); #Neutrophils 1.8 thou/uL (1.40-6.50); %Eosinophils 3.8 % (0.0-10.0); %Lymphocytes 41.8 % (21.0-51.0); %Monocytes 9.5 % (0.0-10.0); %Neutrophils 44.8 % (42.0-75.0); Hemoglobin 12.7 g/dL (14.0-18.0); Mean Corpuscular HGB CONC 31.5 g/dL (32.0-36.0); Mean Corpuscular Hemoglobin 27.2 pg (27.0-31.0); Mean Corpuscular Volume 86.6 fL (78.0-98.0); Mean Platelet Volume 9.3 fL (7.4-10.4); Platelet Count 194 thou/uL (130-400); RBC Distribution Width 15.8 % (11.5-14.5); Red Blood Cell (RBC) Count 4.68 mill/uL (4.70-6.10)
[2021-08-28 06:19] LABS: INR-International Normal Ratio 2.5; Prothrombin Time 27.6 sec (12.0-14.7)
[2021-08-28 07:02] LABS: Chloride 104 mmol/L (98-107); Sodium 140 mmol/L (136-145)
[2021-08-28 07:03] LABS: Calcium 9.3 mg/dL (7.8-10.44); Glucose 117 mg/dL (70-105)
[2021-08-28 07:05] LABS: Carbon Dioxide 28 mmol/L (22-29)
[2021-08-28 07:07] LABS: BUN (Urea Nitrogen) 13 mg/dL (8.9-20.6); Calc. Creatinine Clearance 102 mL/min (70-130)
[2021-08-28] MEDS ORDERED: Magnesium 2 GM/50 ML 2 GM in Premix Bag 1 BAG IVPB SCH (08:00)
[2021-08-28] MEDS: NIFEdipine XL 90 MG TAB PO SCH (10:45)
[2021-08-28] MEDS: Nebivolol HCl 5 MG TAB PO SCH (10:45)
[2021-08-28] MEDS: Aspirin Chewable 81 MG TAB PO SCH (10:45)
[2021-08-28] MEDS: Losartan 25 MG TAB PO SCH (10:45)
[2021-08-28 12:44] LABS: Anion Gap 13 mmol/L (10-20)
[2021-08-28] MEDS: Warfarin Sodium 2.5 MG TAB PO SCH (18:00)
[2021-08-28] MEDS: Warfarin Sodium 10 MG TAB PO SCH (18:00)
[2021-08-28] MEDS: Atorvastatin Calcium 40 MG TAB PO SCH (21:33)
[2021-08-29 06:43] LABS: INR-International Normal Ratio 2.3; Prothrombin Time 25.6 sec (12.0-14.7)
[2021-08-29] MEDS: Aspirin Chewable 81 MG TAB PO SCH (08:48)
[2021-08-29] MEDS: NIFEdipine XL 90 MG TAB PO SCH (08:48)
[2021-08-29] MEDS: Nebivolol HCl 5 MG TAB PO SCH (08:48)
[2021-08-29] MEDS: Losartan 25 MG TAB PO SCH (08:48)
[2021-08-29] MEDS: Warfarin Sodium 2.5 MG TAB PO SCH (17:15)
[2021-08-29] MEDS: Warfarin Sodium 10 MG TAB PO SCH (17:15)
[2021-08-29] MEDS: Atorvastatin Calcium 40 MG TAB PO SCH (21:03)
[2021-08-30 07:05] LABS: INR-International Normal Ratio 2.4; Prothrombin Time 26.9 sec (12.0-14.7)
[2021-08-30] MEDS: Losartan 25 MG TAB PO SCH (10:48)
[2021-08-30] MEDS: Nebivolol HCl 5 MG TAB PO SCH (10:48)
[2021-08-30] MEDS: Aspirin Chewable 81 MG TAB PO SCH (10:48)
[2021-08-30] MEDS: NIFEdipine XL 90 MG TAB PO SCH (10:53)
[2021-08-30 12:57] VITALS: BP 142/81; TEMP 98.1
== END 2021-08-30 13:44 | DRG 64 ==
LOC: ERS 07:58 → EEVIPCON 10:26 → ERHOLD 10:26 → CCU 17:01 → 3SE 08-14 19:16
PROVIDERS: ADMIT Family Medicine; ATTEND Internal Medicine
PROC: 0BH17EZ Insertion of Endotracheal Airway into Trachea, Via Natural or Artificial Opening (ICD-10-PCS; principal; 2021-08-09)
PROC: 5A1945Z Respiratory Ventilation, 24-96 Consecutive Hours (ICD-10-PCS; 2021-08-09)
DX: I63.9 Cerebral infarction, unspecified (principal); J96.01 Acute respiratory failure with hypoxia; Q21.0 Ventricular septal defect; I50.32 Chronic diastolic (congestive) heart failure; E87.1 Hypo-osmolality and hyponatremia; I11.0 Hypertensive heart disease with heart failure; I16.0 Hypertensive urgency; H49.22 Sixth [abducent] nerve palsy, left eye; I08.1 Rheumatic disorders of both mitral and tricuspid valves; R74.01 Elevation of levels of liver transaminase levels; E83.42 Hypomagnesemia; R40.0 Somnolence; Z95.2 Presence of prosthetic heart valve; Z79.01 Long term (current) use of anticoagulants; Z79.899 Other long term (current) drug therapy
CPT/HCPCS: 36415; 36416; 36600; 70450; 70496; 70498; 70551; 71045; 74230; 80048; 80053; 80061; 80202; 81001; 81003; 82805; 83036; 83735; 84100; 84443; 84484; 85025; 85610; 85730; 87040; 87070; 87205; 93005; 93306; 94002; 94003; 94760; 95712; 95816; 95819; 95957; C9113; J0360; J0692; J1644; J1940; J2704; J3010; J3370; J3475; J3490; J7042; J7050; Q9967; U0002; U0003; U0005

== ENCOUNTER 2024-05-08 09:50 | Inpatient (IN) | payer BC, SELFPAY ==
[2024-05-08 11:04] LABS: #Basophils Less than 0.03 10x3/uL (0.0-0.2); #Eosinphils Less than 0.03 10x3/uL (0.0-0.7); %Basophils 0.1 % (0.0-1.0); %Eosinophils 0.2 % (0.0-10.0); %Lymphocytes 5.9 % (21.0-51.0); %Monocytes 5.6 % (0.0-10.0); %Neutrophils 87.9 % (42.0-75.0); ALT (SGPT) 12 U/L (8-55); AST (SGOT) 29 U/L (5-34); Albumin 3.4 g/dL (3.5-5.0); Alkaline Phosphatase 45 U/L (40-110); Anion Gap 14 mmol/L (10-20); BUN (Urea Nitrogen) 18 mg/dL (8.4-25.7); Bilirubin, Total 0.4 mg/dL (0.2-1.2); Calc. Creatinine Clearance 0 mL/min (70-130); Calcium 8.3 mg/dL (7.8-10.44); Carbon Dioxide 20 mmol/L (22-29); Chloride 110 mmol/L (98-107); Estimated GFR 73; Globulin 2.7 g/dL (2.4-3.5); Glucose 173 mg/dL (70-105); Hemoglobin 3.9 g/dL (14.0-18.0); Mean Corpuscular HGB CONC 27.9 g/dL (32.0-36.0); Mean Corpuscular Hemoglobin 19.3 pg (27.0-31.0); Mean Corpuscular Volume 69.3 fL (78.0-98.0); Platelet Count 100 10x3/uL (130-400); Potassium 3.8 mmol/L (3.5-5.1); Protein, Total 6.1 g/dL (6.0-8.3); RBC Distribution Width 16.6 % (11.5-14.5); Red Blood Cell (RBC) Count 2.02 mill/uL (4.70-6.10); Sodium 140 mmol/L (136-145)
[2024-05-08 11:29] LABS: Elliptocytes SLIGHT = 2-5 cells HPF (0-1); Hypochromia MODERATE=16-30 cells HPF (0-5); Microcytosis MODERATE=15-30 cells HPF (0-5); Polychromasia MODERATE = 3-4 cells HPF (0-2)
[2024-05-08 12:10] LABS: Troponin I 0.488 ng/mL (< 0.028)
[2024-05-08] MEDS ORDERED: Acetaminophen 325 MG TAB PO PRN (14:08)
[2024-05-08 16:57] LABS: Hematocrit 21.8 % (42.0-52.0); Hemoglobin 6.1 g/dL (14.0-18.0)
[2024-05-08 17:15] LABS: INR-International Normal Ratio 3.1; PTT 31.7 sec (22.9-36.1); Prothrombin Time 32.3 sec (12.0-14.7)
[2024-05-08 17:18] LABS: Lactic Acid 2.3 mmol/L (0.5-2.2)
[2024-05-08 17:44] LABS: Troponin I 0.726 ng/mL (< 0.028)
[2024-05-08] MEDS: Phytonadione 5 MG TAB PO SCH (19:42)
[2024-05-08] MEDS: Pantoprazole 40 MG VIAL IVP SCH (19:43)
[2024-05-08] MEDS: GoLYTELY 4,000 ml Bottle PO SCH (19:43)
[2024-05-08] MEDS: Phytonadione 10 MG/ML AMP PO SCH (20:23)
[2024-05-09 01:36] LABS: Hemoglobin 8.6 g/dL (14.0-18.0); Platelet Count 79 10x3/uL (130-400)
[2024-05-09 01:56] LABS: Troponin I 1.054 ng/mL (< 0.028)
[2024-05-09 05:19] LABS: #Basophils 0.07 10x3/uL (0.0-0.2); %Basophils 0.8 % (0.0-1.0); %Lymphocytes 16.6 % (21.0-51.0); %Monocytes 7.8 % (0.0-10.0); Hematocrit 26.2 % (42.0-52.0); Hemoglobin 8.2 g/dL (14.0-18.0); Mean Corpuscular HGB CONC 31.3 g/dL (32.0-36.0); Mean Corpuscular Hemoglobin 23.2 pg (27.0-31.0); Mean Corpuscular Volume 74.2 fL (78.0-98.0); Mean Platelet Volume 10.9 fL (7.4-10.4); Platelet Count 75 10x3/uL (130-400); RBC Distribution Width 17.6 % (11.5-14.5); Red Blood Cell (RBC) Count 3.53 mill/uL (4.70-6.10)
[2024-05-09 05:26] LABS: INR-International Normal Ratio 2.2; Prothrombin Time 24.9 sec (12.0-14.7)
[2024-05-09 05:45] LABS: ALT (SGPT) 7 U/L (8-55); AST (SGOT) 29 U/L (5-34); Albumin 3.2 g/dL (3.5-5.0); Alkaline Phosphatase 49 U/L (40-110); Anion Gap 12 mmol/L (10-20); BUN (Urea Nitrogen) 12 mg/dL (8.4-25.7); Bilirubin, Total 1.9 mg/dL (0.2-1.2); Calc. Creatinine Clearance 115 mL/min (70-130); Carbon Dioxide 22 mmol/L (22-29); Chloride 112 mmol/L (98-107); Estimated GFR 101; Globulin 2.5 g/dL (2.4-3.5); Glucose 88 mg/dL (70-105); Potassium 4.1 mmol/L (3.5-5.1); Protein, Total 5.7 g/dL (6.0-8.3); Sodium 142 mmol/L (136-145)
[2024-05-09 07:12] LABS: Troponin I 0.842 ng/mL (< 0.028)
[2024-05-09] MEDS ORDERED: PROPOFOL 20 ML ONE ×2 (11:16→11:50)
[2024-05-09] MEDS ORDERED: Lidocaine 2% PF 5 ML VIAL ONE (11:16)
[2024-05-09] MEDS ORDERED: Promethazine HCl 25 MG/ML VIAL IM PRN (11:38)
[2024-05-09] MEDS ORDERED: Ondansetron HCl/PF 4 MG/2 ML Vial IVP PRN (11:38)
[2024-05-09] MEDS: Warfarin Sodium 5 MG TAB PO SCH (16:29)
[2024-05-10 04:24] LABS: #Basophils 0.05 10x3/uL (0.0-0.2); %Basophils 0.6 % (0.0-1.0); %Eosinophils 3.2 % (0.0-10.0); %Lymphocytes 13.8 % (21.0-51.0); %Monocytes 7.8 % (0.0-10.0); %Neutrophils 74.2 % (42.0-75.0); Hematocrit 24.8 % (42.0-52.0); Hemoglobin 7.9 g/dL (14.0-18.0); Mean Corpuscular HGB CONC 31.9 g/dL (32.0-36.0); Mean Corpuscular Hemoglobin 24.3 pg (27.0-31.0); Mean Corpuscular Volume 76.3 fL (78.0-98.0); Mean Platelet Volume 9.8 fL (7.4-10.4); Platelet Count 71 10x3/uL (130-400); Red Blood Cell (RBC) Count 3.25 mill/uL (4.70-6.10)
[2024-05-10 04:34] LABS: INR-International Normal Ratio 1.9; PTT 36.6 sec (22.9-36.1)
[2024-05-10 04:37] LABS: Anion Gap 8 mmol/L (10-20); BUN (Urea Nitrogen) 11 mg/dL (8.4-25.7); Calc. Creatinine Clearance 104 mL/min (70-130); Calcium 8.1 mg/dL (7.8-10.44); Carbon Dioxide 24 mmol/L (22-29); Chloride 108 mmol/L (98-107); Estimated GFR 89; Glucose 109 mg/dL (70-105); Iron 25 ug/dL (65-175); Iron Binding Capacity, Total 320 mcg/dL (261-462); Potassium 3.4 mmol/L (3.5-5.1); Sodium 137 mmol/L (136-145)
[2024-05-10 04:38] LABS: ALT (SGPT) 7 U/L (8-55); AST (SGOT) 26 U/L (5-34); Albumin 2.9 g/dL (3.5-5.0); Alkaline Phosphatase 50 U/L (40-110); Anion Gap 10 mmol/L (10-20); BUN (Urea Nitrogen) 11 mg/dL (8.4-25.7); Bilirubin, Total 1.2 mg/dL (0.2-1.2); Calc. Creatinine Clearance 105 mL/min (70-130); Calcium 8.1 mg/dL (7.8-10.44); Carbon Dioxide 24 mmol/L (22-29); Chloride 107 mmol/L (98-107); Estimated GFR 90; Globulin 2.6 g/dL (2.4-3.5); Glucose 109 mg/dL (70-105); Iron 25 ug/dL (65-175); Iron Binding Capacity, Total 326 mcg/dL (261-462); Potassium 3.4 mmol/L (3.5-5.1); Protein, Total 5.5 g/dL (6.0-8.3); Sodium 138 mmol/L (136-145)
[2024-05-10 05:15] VITALS: BMI 26.6
[2024-05-10] MEDS: Nebivolol HCl 5 MG TAB PO SCH (08:25)
[2024-05-10] MEDS: NIFEdipine XL 30 MG ER.TAB PO SCH (08:25)
[2024-05-10 08:26] VITALS: BP 180/74
[2024-05-10] MEDS: Sodium Ferric Gluconate 250 MG in Sodium Chloride 0.9% 250 ML 250 ML IVPB SCH ×2 (11:04→11:13)
[2024-05-10 12:04] VITALS: TEMP 98.1
[2024-05-10] MEDS: Potassium Chloride 20 MEQ TAB PO SCH (14:42)
[2024-05-10] MEDS ORDERED: Iron Polysaccharides Complex 150 MG CAP PO SCH (17:00)
[2024-05-10] MEDS ORDERED: Ascorbic Acid 500 mg Chewable Tablet PO SCH (17:00)
== END 2024-05-10 15:40 | disposition home or self-care (01) | DRG 377 ==
LOC: ERS 09:50 → EEVIPCON 09:50 → ERHOLD 13:58 → CCU 16:18
PROVIDERS: ADMIT Internal Medicine; ATTEND Internal Medicine
PROC: 30233K1 Transfusion of Nonautologous Frozen Plasma into Peripheral Vein, Percutaneous Approach (ICD-10-PCS; 2024-05-08)
PROC: 30233N1 Transfusion of Nonautologous Red Blood Cells into Peripheral Vein, Percutaneous Approach (ICD-10-PCS; 2024-05-08)
PROC: 0DB68ZX Excision of Stomach, Via Natural or Artificial Opening Endoscopic, Diagnostic (ICD-10-PCS; principal; 2024-05-09)
PROC: 0DJD8ZZ Inspection of Lower Intestinal Tract, Via Natural or Artificial Opening Endoscopic (ICD-10-PCS; 2024-05-09)
DX: K25.4 Chronic or unspecified gastric ulcer with hemorrhage (principal); I21.A1 Myocardial infarction type 2; D62 Acute posthemorrhagic anemia; D68.9 Coagulation defect, unspecified; I69.351 Hemiplegia and hemiparesis following cerebral infarction affecting right dominant side; D68.32 Hemorrhagic disorder due to extrinsic circulating anticoagulants; I10 Essential (primary) hypertension; Z79.82 Long term (current) use of aspirin; Z79.899 Other long term (current) drug therapy; Z79.01 Long term (current) use of anticoagulants; D69.6 Thrombocytopenia, unspecified; K64.8 Other hemorrhoids
CPT/HCPCS: 36415; 36430; 71045; 80048; 80053; 82274; 82728; 83540; 83550; 83605; 83735; 84484; 85025; 85610; 85730; 86850; 86900; 86901; 88305; 93005; C9113; J2001; J2704; J2916; J7050; P9016; P9059